=== PATIENT | male | born 1945 | race Caucasian/White ===

== ENCOUNTER → 2023-11-13 11:42 | Outpatient (REF) | payer MEDICARE, BC, SELFPAY | LOC: RAD 11:42 | PROVIDERS: ATTENDING PHYSICIAN Nurse Practitioner | DX: R06.02 Shortness of breath (principal) | CPT/HCPCS: 71046 ==

== ENCOUNTER → 2023-11-29 15:42 | Outpatient (REF) | payer MEDICARE, BC, SELFPAY | LOC: DHCBS HW 15:42 | PROVIDERS: ATTENDING PHYSICIAN Internal Medicine Cardiovascular Disease; FAMILY PHYSICIAN Family Medicine | DX: I50.22 Chronic systolic (congestive) heart failure (principal) | CPT/HCPCS: 93306 ==

== ENCOUNTER 2023-12-04 09:01 | Inpatient (IN) | payer MEDICARE, BC, SELFPAY ==
[2023-12-04] VITALS (25 sets, daily range): BP systolic 70–108; BP diastolic 45–89; BMI 26.6; BMI 27.5
[2023-12-04 07:20] LABS: Hematocrit 40.2 % (39.0-52.0); Hemoglobin 13.6 g/dL (13.0-18.0); Mean Corp Hgb Conc. 33.8 g/dL (33.0-37.0); Mean Corpuscular Hgb 33.3 pg (27.0-31.0); Mean Corpuscular Volume 98.5 fL (80.0-94.0); Mean Platelet Volume 12.6 fL (7.4-10.4); Platelet Count 123 10^3/uL (130-400); Red Blood Cell Count 4.08 10^6/uL (4.70-6.10); Red Cell Dist. Width 12.3 % (11.5-14.5); White Blood Cell Count 4.9 10^3/uL (4.8-10.8)
--- NOTE | 2023-12-04 09:57 | CONSULT.CT ---
Consultation
-
Date/Time Consultation Requested: 12/04
Date/Time Consultation Performed: 12/04
Requesting Provider: Dr. carlson
Performing Provider: Jennifer Alonzo for Dr Jones
Reason for Consultation: evaluate for MVR/CABG
Patient History
Physicians
Family Physician: Maldonado Niño
Outpatient Pulper: Tanesha Issa
Inpatient Pulper: Paris Armenta
History of Present Illness
78 year old male followed by Dr Issa for known coronary disease with prior stenting to RCA in 2005. Over the past few months, patient noticed an inability to perform his usual heavy daily work out and denies chest discomfort, or
lightheadedness/dizziness. Patient admits to recent insomnia and lower extremity edema, but denies PND, cough.
Past Medical History
Past Medical History: Other
CAD s/p RCA stents 2005
Atrial Fibrillation
BPH
Past Surgical History
Past Surgical History: Other
Left hip replacement
Dental History
last dental exam <6 months ago
Family History
Mother: at Age
Father: at Age
Social History
Alcohol: None
Drug: None
Tobacco: Non-Smoker
Personal:
Living: With Spouse
Employment: Retired
Allergies
Allergy/AdvReac Type Severity Reaction Status Date / Time
NKA - No Known Allergies Allergy Unknown Uncoded 12/04/23 07:21
Home Medications
Medication Instructions Recorded Confirmed Type
ascorbic acid (vitamin C) 500 mg 1,000 mg PO DAILY 01/14/11 12/04/23 History
tablet (Vitamin C)
multivitamin with folic acid 400 1 tab PO DAILY ##0 01/14/11 12/04/23 History
mcg tablet (Tab-A-Jacob)
valsartan 320 mg tablet (Diovan) 320 mg PO DAILY 01/14/11 12/04/23 History
aspirin 81 mg tablet,delayed 81 mg PO DAILY ##0 03/16/16 12/04/23 Rx
release
alprazolam 0.25 mg tablet 0.25 mg PO HS 10/20/16 12/04/23 History
apixaban 5 mg tablet (Eliquis) 5 mg PO BID 10/20/16 12/04/23 History
atorvastatin 40 mg tablet 40 mg PO QPM 10/20/16 12/04/23 History
chondroitin sulfate A sodium 400 1,200 mg PO BID 10/20/16 12/04/23 History
mg capsule (Chondroitin Sulfate)
fish oil-dha-epa 1,200 mg-144 1 ea PO BID 10/20/16 12/04/23 History
mg-216 mg capsule
glucosamine HCl 1,500 mg tablet 1,500 mg PO BID 10/20/16 12/04/23 History
psyllium husk (aspartame) 3.4 gram 1 packet PO BID 10/20/16 12/04/23 History
oral powder packet (Metamucil
Fiber Singles)
hydrocodone 5 mg-acetaminophen 325 1 tab PO Q4HPRN PRN pain #10 tabs 08/21/17 12/04/23 Rx
mg tablet
amiodarone 200 mg tablet 200 mg PO BID 12/04/23 12/04/23 History
carvedilol 3.125 mg tablet 3.125 mg PO BID 12/04/23 12/04/23 History
ezetimibe 10 mg tablet 10 mg PO DAILY 12/04/23 12/04/23 History
furosemide 40 mg tablet (Lasix) 40 mg PO DAILY 12/04/23 12/04/23 History
lisinopril 2.5 mg tablet 2.5 mg PO DAILY 12/04/23 12/04/23 History
nitroglycerin 0.4 mg sublingual 0.4 mg sublingual Q5-15M PRN chest 12/04/23 12/04/23 History
tablet (Nitrostat) pain
tamsulosin 0.4 mg capsule 0.4 mg PO HS 12/04/23 12/04/23 History
Review of Systems
-
History Source: Patient
General: Reports Sleep Disturbance (insomnia past 2 weeks)
HEENT: Reports No Symptoms
Respiratory: Reports No Symptoms
Cardiac: Reports No Symptoms
Abdomen/GI: Reports No Symptoms
: Reports Frequency
Musculoskeletal: Reports No Symptoms
Skin: Reports No Symptoms
Neurological: Reports No Symptoms
Vascular: Reports No Symptoms
Physical Exam
Vital Signs
Temp 98 F 12/04/23 07:14
Temp route: Oral 12/04/23 07:14
Pulse 70 12/04/23 07:14
Resp Rate 14 12/04/23 07:14
Blood pressure 108/69 12/04/23 07:14
Blood pressure extremity used: Right upper arm 12/04/23 07:14
Position: Sitting 12/04/23 07:14
SaO2 88 12/04/23 07:14
Oxygen Mode of Delivery Room air 12/04/23 07:14
Can the patient verbally communicate their pain? Yes 12/04/23 07:14
Actual Weight 84.4 kg 12/04/23 07:09
Body Mass Index (BMI) 27.5 12/04/23 07:09
Labs
12/04/23 07:06
Exam
General: Well Developed, Well Nourished and Comfortable
HEENT: Normocephalic, Anicteric, Moist Mucous Membranes and PERRLA
Respiratory: Clear
Cardiac: Irregular Rhythm and Murmur (II/ HSM LSM 5th ICS radiates to axillae)
GI: Soft, Non Tender and Normal Bowel Sounds
Rectal: Deferred by Provider
Skin: Warm and Dry
Neuro: AO x 3, No Motor Deficits and Nonfocal/Grossly Intact
Extremities: Lower Level Edema (+1 B/L ankle edema) and Pulses (+2/4 DP pulses B/L)
Lymph: No Lymphadenopathy
Psych: Calm
Assessment / Plan
-
78 year old male with single vessel coronary disease and severe mitral regurgitation in setting of HFrEF (20-25%)
- Dr Jones reviewed the imaging and discussed complex case with cardiology
- continue diuresis and GDMT
- Plavix load 600mg today and schedule for PCI of LAD
- CLARISSA on Sunday
Data Reviewed
-
EKG: Report Reviewed by me and Discussed with Physician
Cargo Bracer: Report Reviewed by me and Discussed with Physician
Echo: Report Reviewed by me and Discussed with Physician
Radiology: Report Reviewed by me and Discussed with Physician
Labs: Labs Reviewed by me and Discussed with Physician
--- NOTE | 2023-12-04 11:24 | PTCARENOTE ---
patient is Afib on the monitor and has frequent pauses 3.45 seconds, patient is asymptomatic, Ambar Christianson LEARNING AND DEVELOPMENT OFFICER aware.
patient had cardiac cath this am via right groin arterial and venous access, dsg. D/I, distal pulses palpable. patient 8instucted that he needs to lie in bed for 3 hours, verbalizes understanding. will continue to monitor.
[2023-12-04] MEDS: PLAVIX 600 MG PO (11:46)
[2023-12-04] MEDS: LASIX 40 MG IV (11:48)
--- NOTE | 2023-12-04 11:50 | CM ---
priced jardiance with pts perscript plan and his copay is $21.12/month and janae is $ 20.81/month
--- NOTE | 2023-12-04 12:07 | PTCARENOTE ---
INT in left arm unable to flush, D/C'd, new INT placed in right arm # 22P.
--- NOTE | 2023-12-04 12:09 | PTCARENOTE ---
loaded patient with 600mg of plavix as ordered. Dr. Gonzalez in room talking to patient and .
--- NOTE | 2023-12-04 13:41 | W.PN.HOSP.TC ---
Today's Communication/Plan
-
Accepted to medical service
Cardiology continue to follow
Initiate IV diuresis and heparin drip in preparation for eventual PCI
Plavix initiated for eventual PCI
CLARISSA later this week
Monitor renal numbers postcatheterization and on diuretic management
Monitor thrombocytopenia on heparin
Assessment / Plan
Assessment / Plan
78-year-old male who underwent a right and left heart cath today and showed increased filling pressures and a 70 to 80% mid LAD stenosis lesion that will require eventual intervention by PCI but found to be in significant congestive heart failure in
relation to a recently documented reduced of ejection fraction down to 25% from baseline of prior 45% with severe mitral regurgitation also noted. We excepted patient on a medical service and transferred for cardiology plan is for Plavix loading
and scheduled PCI of the LAD in the coming week also a transesophageal echocardiogram. Patient will require significant diuretic management due to significant weight loss and fluid retention on exam.
Past medical history
Prior CAD with RCA stent 2005
Permanent atrial fibrillation
Benign prostatic hypertrophy
Surgical h/o
Prior left hip replacement
Family History
Mother: at Age
Father: at Age
Social History
Alcohol: None
Drug: None
Tobacco: Non-Smoker
Personal:
Living: With Spouse
Employment: Retired
Allergies
Allergy/AdvReac Type Severity Reaction Status Date / Time
NKA - No Known Allergies Allergy � Unknown Uncoded 12/04/23 07:[address]
[facility]
[address] [place] [address]*[place] [address]

�Medication �Instructions �Recorded �Confirmed �Type
ascorbic acid (vitamin C) 500 mg 1,000 mg PO DAILY 01/14/11 12/04/23 History
tablet (Vitamin C) � � � �
multivitamin with folic acid 400 1 tab PO DAILY ##0 01/14/11 12/04/23 History
mcg tablet (Tab-A-Jacob) � � � �
valsartan 320 mg tablet (Diovan) 320 mg PO DAILY 01/14/11 12/04/23 History
aspirin 81 mg tablet,delayed 81 mg PO DAILY ##0 03/16/16 12/04/23 Rx
release � � � �
alprazolam 0.25 mg tablet 0.25 mg PO HS 10/20/16 12/04/23 History
apixaban 5 mg tablet (Eliquis) 5 mg PO BID 10/20/16 12/04/23 History
atorvastatin 40 mg tablet 40 mg PO QPM 10/20/16 12/04/23 History
chondroitin sulfate A sodium 400 1,200 mg PO BID 10/20/16 12/04/23 History
mg capsule (Chondroitin Sulfate) � � � �
fish oil-dha-epa 1,200 mg-144 1 ea PO BID 10/20/16 12/04/23 History
mg-216 mg capsule � � � �
glucosamine HCl 1,500 mg tablet 1,500 mg PO BID 10/20/16 12/04/23 History
psyllium husk (aspartame) 3.4 gram 1 packet PO BID 10/20/16 12/04/23 History
oral powder packet (Metamucil � � � �
Fiber Singles) � � � �
hydrocodone 5 mg-acetaminophen 325 1 tab PO Q4HPRN PRN pain #10 tabs 08/21/17 12/04/23 Rx
mg tablet � � � �
amiodarone 200 mg tablet 200 mg PO BID 12/04/23 12/04/23 History
carvedilol 3.125 mg tablet 3.125 mg PO BID 12/04/23 12/04/23 History
ezetimibe 10 mg tablet 10 mg PO DAILY 12/04/23 12/04/23 History
furosemide 40 mg tablet (Lasix) 40 mg PO DAILY 12/04/23 12/04/23 History
lisinopril 2.5 mg tablet 2.5 mg PO DAILY 12/04/23 12/04/23 History
nitroglycerin 0.4 mg sublingual 0.4 mg sublingual Q5-15M PRN chest 12/04/23 12/04/23 History
tablet (Nitrostat) pain � � �
tamsulosin 0.4 mg capsule 0.4 mg PO HS 12/04/23 12/04/23 History
Assessment and plan
New onset and worsening cardiomyopathy/HFrEF
-Significant weight gain and JEWELL
-EF on most recent 2D echocardiogram reduced from 45% to 25%
-Worsening mitral regurgitation now severe
-Status post left and right heart cath with increased filling pressures
-Found to have mid LAD lesion of 70 to 80% that will require PCI eventually this admission
-Will need diuretic management for fluid overload first/check renal chemistry numbers today
-Given Plavix load for PCI/CLARISSA later this week
-Heparin drip and lieu of prior course of Eliquis on hold
-Cardiology will follow
CAD
-70 to 80% mid LAD lesion
-Prior history of RCA stent in 2005
-Continue statin
-Continue aspirin
-Plavix loading
Permanent atrial fibrillation
-Periods of bradycardia
-On rate control with carvedilol 3.125 mg p.o. twice daily/amiodarone 200 mg twice daily
-Eliquis on hold heparin drip for PCI
-As per cardiology
Essential hypertension
-Continue lisinopril and carvedilol
BPH
-To remain on finasteride and tamsulosin
Thrombocytopenia
-Prior history on a chronic basis
-Unclear etiology
-At prior baseline but will be monitored since on heparin drip
Anxiety /sleep disorder
-Has been using alprazolam 0.25 mg at bedtime-
DVT prophylaxis on heparin drip
Full CODE STATUS
Anticipated Discharge: > 48 hours
Subjective/Interval History
-
Date of Service: December 04, 2023
Asked to see on transfer service from cardiovascular service after left and heart right heart cath earlier today. Patient seen postcatheterization has already received a dosage of IV Lasix with some diuresis present weight is 84.4 kg. Noting
increasing difficulty in sleeping at night also weight gain and exertional dyspnea and daily work duties. More difficulty sleeping necessitating dosing of alprazolam of late as melatonin has not been helping.
Objective Data
-
Labs:
Laboratory Results
12/04/23 12/04/23
07:06 13:16
WBC 4.9
Hgb 13.6
Hct 40.2
Plt Count 123 L
Sodium Pending
Potassium Pending
Chloride Pending
Carbon Dioxide Pending
BUN Pending
Creatinine Pending
Glucose Pending
Calcium Pending
Total Bilirubin Pending
AST Pending
ALT Pending
Alkaline Phosphatase Pending
Vital Signs:
Vital Signs
Temp Pulse Resp BP Pulse Ox
97.8 F 86 16 102/75 99
12/04/23 09:56 12/04/23 12:15 12/04/23 09:56 12/04/23 12:00 12/04/23 09:56
I&O
12/03/23 12/04/23 12/05/23
06:59 06:59 06:59
Intake Total 240 / 240
Output Total 900 / 900
Balance -660 / -660
Review of Systems
-
History Source: Patient and Family
Constitutional: Reports Weight Gain (Almost 20 pounds in the last several months)
Respiratory: Reports No Symptoms
Cardiac: Reports No Symptoms
Abdomen/GI: Reports No Symptoms
Musculoskeletal: Reports Edema (Both lower extremities)
Physical Exam
-
General: Well Developed
HEENT: Normocephalic
Respiratory: Rales and Decreased Breath Sounds
Cardiac: Irregular Rhythm, Murmur (Ejection murmur sternum to axilla) and Bradycardic
GI: Soft, Nontender and Nondistended
Neuro: Awake, Alert, Oriented, AO x 3 and No Motor Deficits
Psych: Calm, Confused and Agitated
Data Reviewed
-
Total Time Spent with Patient (in minutes): 56
Medical Tests (Nuc Med, Echo etc): Report Reviewed by me and Discussed with Physician (Reviewed 2D echocardiogram results and left heart catheter results done today with Dr. Narvaez)
Labs: Labs Reviewed by me (Today's labs still pending chemistries/thrombocytopenia noted 123)
[2023-12-04 14:19] LABS: ALT (SGPT) 60 U/L (0-50); AST (SGOT) 115 U/L (17-59); Albumin 4.1 g/dl (3.5-5.0); Alkaline Phosphatase 49 U/L (38-126); Blood Urea Nitrogen 30 mg/dl (9-20); Calcium 8.9 mg/dl (8.4-10.2); Carbon Dioxide 27 mmol/L (22-30); Chloride 99 mmol/L (98-107); Estimated Creatinine Clearance 60 ml/min; Glucose 123 mg/dl (70-99); Potassium 3.6 mmol/L (3.5-5.1); Sodium 131 mmol/L (135-145); Total Bilirubin 1.1 mg/dl (0.2-1.3); Total Protein 5.9 g/dl (6.3-8.2); eGFR > 60.00
--- NOTE | 2023-12-04 14:49 | PTCARENOTE ---
Dr. Narvaez aware of patients I/O and also patient has frequent pauses and HR in the 30's, 40's.
--- NOTE | 2023-12-04 15:19 | ITS.CL.CATH ---
Lab Assistant - Catheterization
Cardiac Catheterization
Procedure Report:
LEFT AND RIGHT HEART CATHETERIZATION
Date of Procedure: December 04, 2023
Referring: Tanesha Issa
PROCEDURES:
1. Left catheterization, coronary angiogram.
2. Right heart catheterization.
3. Ultrasound-guided access
INDICATION: Mr Clark is a 78-year-old gentleman with past medical history of hypertension, hyperlipidemia, coronary artery disease status post prior multiple RCA stents in 2005, chronic atrial fibrillation on long-term Eliquis, last dose morning
of December 03, 2023, mild memory deficits with 2-month history of progressively worsening dyspnea on exertion found to have a new reduction in LV systolic function of 25 to 30%, reduced from 45 to 50% previously now being referred for a left and
right heart catheterization.
ACCESS:
1. Right common femoral artery, 5 Cambodian sheath, under ultrasound guidance with a micropuncture kit.
2. Right common femoral vein, 6 Cambodian sheath, under ultrasound guidance using a micropuncture kit.
Given significant iliofemoral tortuosity in the right common femoral artery preventing advancement of catheters and wires, the 5 Cambodian by 11 cm sheath was replaced with a 5 Cambodian by 23 cm sheath over a 0.35' Amplatz Super Stiff wire.
HEMODYNAMICS : (mmHg)
RA (m) : 15
RV (s/d,m) : 48/10, 16
PA (s/d, m) : 52/31, 36
PCWP (m) : 31, V waves up to 53 mmHg
PA saturation: 56.1% on room air
AO saturation: 92.4% on room air
RA saturation: 52.9% on room air
Cardiac Output : 3.57 L/min
Cardiac Index : 1.78 L/min/m-2
Systemic vascular resistance: 1612 dsc^(-5)
Pulmonary vascular resistance: 1.40 cowan unit
Heart rate: Average of 80 bpm
AO (s/d) : 107/81, mean of 90 mmHg
CORONARY FINDINGS
DOMINANCE: Right
LEFT MAIN: The left main artery is a large-caliber vessel which gives rise to the left into descending artery and the left circumflex artery. There is eccentric 10 to 20% ostial left main stenosis
LEFT ANTERIOR DESCENDING: The left anterior descending artery is a large-caliber vessel which gives rise to 1 major diagonal branch. There is a stepdown in the mid LAD with diffuse 50% stenosis and a tubular 70 to 80% stenosis in the mid to distal
LAD.
CIRCUMFLEX: The left circumflex artery is a small to medium caliber vessel which gives rise to 1 major obtuse marginal branch. 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
There is mild diffuse atherosclerotic plaque otherwise
RIGHT CORONARY ARTERY: The right coronary is a large-caliber vessel which gives rise to the right posterior descending artery and the right posterolateral branch. Mid RCA stents are patent. There is a 70% stenosis in the midportion of the RPDA.
Otherwise there is mild diffuse atherosclerotic plaque.
SEDATION: 71 minutes of procedural sedation was utilized. An independent manager medical affairs was present to assist with and help manage the patient's level of consciousness and physiologic status.
RADIATION SUMMARY: Fluoro Time (min): 14.6, Dose (mGy): 786.1, DAP (Gy.cm2) : 62.1
Closure Device: Manual pressure was held over both the right common femoral artery and vein with successful hemostasis.
CONCLUSIONS
1. There is a stepdown in the mid LAD with diffuse 50% stenosis and a tubular 70 to 80% stenosis in the mid to distal LAD.
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
3. Mid RCA stents are patent. There is a 70% stenosis in the midportion of the RPDA.
4. Significantly elevated right and left-sided filling pressures with reduced cardiac output. Systemic vascular resistance is mildly elevated.
5. Of note, on the monitor throughout the case patient is in atrial fibrillation with intermittent pauses less than 5 seconds.
RECOMMENDATIONS
1. We will admit with plan for optimization of filling pressures with IV diuresis and optimization of goal-directed medical therapy for underlying cardiomyopathy with staged intervention to mid to distal LAD stenosis.
2. We will try to attempt rhythm control for his underlying atrial fibrillation as tolerated. Monitor closely on telemetry given history of sinus bradycardia.
3. Reassess degree of mitral regurgitation in the future once optimized from a medical standpoint.
Copy to: Tanesha Issa
Niecy Narvaez MD, FAC, [facility]
--- NOTE | 2023-12-04 15:38 | PTCARENOTE ---
Addendum entered by Muna Mclean RN 12/04/23 16:19:
BP after 250cc bolus 97/78 HR 67
Addendum entered by Muna Mclean RN 12/04/23 15:53:
250cc NSS bolus given as ordered,
Addendum entered by Muna Mclean RN 12/04/23 15:42:
pacer pads applied
Original Note:
BP right arm 81/67, left rm 79/66, placed patient back to bed, asymptomatic, monitor showing afib with pauses. Rosangela WHITAKER and Dr. Armenta in room.
--- NOTE | 2023-12-04 15:52 | W.PN.UPDATE ---
Addendum entered and electronically signed by Niecy Narvaez MD 12/04/23 17:25:
I saw and examined the patient.
The Certified Physician Assistant's note was reviewed and I agree with the note.
Comment: Called to patient's bedside urgently given hypotension in the setting of intermittent pauses with underlying heart rhythm being atrial fibrillation. Most pauses are 2 to 3 seconds with the longest pause happening once at 4.5 seconds.
Patient is asymptomatic. His ins and outs are notable for an input of 240 cc and output after IV Lasix of 2400 cc. Blood pressure noted to be 83/68. My suspicion is that he responded to Lasix quite aggressively with the fluid coming off a bit too
quickly. We will trial giving back to 50 cc of fluid and reassess blood pressure. He continues to remain asymptomatic for now. Groin access site from catheter earlier today without evidence of hematoma or bruit. I discussed with EP colleague,
Dr. Hany Poon, we agreed to hold off on carvedilol as well as amiodarone for now. Given hypotension for now we will also hold off on further Lasix as well as valsartan. No indications currently for a urgent temporary transvenous pacemaker or
permanent device however we briefly discussed with the patient that depending on how he does that is something we may need to consider down the road. Tentative plan if he remains stable overnight and labs are stable, importantly his blood counts
and renal function, for mid to distal LAD PCI tomorrow.
Discussed with nursing at bedside as well as with patient along with his , son and [id number]. All of their questions were answered in detail.
Niecy Narvaez MD, [facility], [facility]
Addendum: We checked on the patient post IV fluids with blood pressure improved to 95/71. Patient continues to feel well without any complaints.
Original Note:
Update Note
Progress Note Update
Called to see patient for pauses up to 4.5 seconds on tele and at other times he is having short runs of rapid Afib. Patient said that he was asymptomatic. Patient then noted to be hypotensive at 83/68 and he reported feeling lightheaded. Patient
was returned from bed to chair. Will give NSS bolus 250 ml x1 now. Hold additional doses of Lasix IV. Stop amiodarone and Coreg for now. Pads placed. Start Heparin gtt tonight. Eliquis 5 mg BID as an outpatient has been on hold for a planned cath.
Talked with patient's and other family in the room about tachy-shayy changes on tele and that will review the case with EP.
[2023-12-04] MEDS: NSS 500 IV (15:57)
[2023-12-04] MEDS: LIPITOR 40 MG PO (17:05)
[2023-12-04] MEDS: HEPARIN 25000 UNITS/250 ML IV (17:55)
--- NOTE | 2023-12-04 18:11 | PTCARENOTE ---
PTT obtained and sent to lab, PLT count 123, notified Dr. Shen, aware. started IV heparin drip at 1000units/hr as ordered. next PTT will be at 2355.
[2023-12-04 18:21] LABS: APTT 31.9 Sec (23.4-35.0)
[2023-12-04] MEDS: NSS 250 IV (18:47)
--- NOTE | 2023-12-04 18:47 | PTCARENOTE ---
Dr. Shen notified that patient is having frequent pauses again and BP 82/65, ordered 250cc blous of NSS. also TT Dr. Narvaez.
--- NOTE | 2023-12-04 19:05 | PTCARENOTE ---
Dr. Armenta called to unit, discussed patient, passed on to night RN to notify Dr. Narvaez in ah hour and a half of patients BP and if patient becomes symptomatic.
--- NOTE | 2023-12-04 22:20 | PTCARENOTE ---
Pt rec'd at change of shift in bed with family at bedside. Afib with freq pauses < 3 sec. noted with occ pvc's. b/p stable 80's systolic. pt denies feeling lightheaded or having cp. Dr Narvaez updated at 2100 of pt's telemetry rhythm and VS. Right
femoral cath site with DDI. No active bleeding or hematoma noted, good pedal pulse. heparin continued at 1000 units /hr next ptt at midnight. Pt continues to void well in urinal. call delgado within reach.
[2023-12-04] MEDS: XANAX 0.25 MG PO (22:43)
--- NOTE | 2023-12-04 22:52 | PTCARENOTE ---
b/p improved. Pt reports however feeling anxious. Xanax given. Pt stated ' I don't think I'll be able to sleep at all tonight'. Pt offered eye mask,ear plugs and relaxing music but pt deferred.
[2023-12-05] VITALS (35 sets, daily range): BP systolic 67–114; BP diastolic 46–91
--- NOTE | 2023-12-05 00:13 | PTCARENOTE ---
RN in to draw ptt and lactate level. Pt reported at that time that he has chest pressure. started 1 hr ago. Pt stated he thought it was just his anxiety. o2 at 2 lit n/c placed. B/p 108/82. ecg completed. PA Ed made aware . Morphine 1 mg ordered. no
ntg due to previous low b/p.
[2023-12-05 00:19] LABS: APTT 75.8 Sec (23.4-35.0)
[2023-12-05] MEDS: MORPHINE SULFATE 1 MG IV (00:19)
[2023-12-05 00:24] LABS: Lactic Acid 0.8 mmol/L (0.7-2.0)
--- NOTE | 2023-12-05 00:27 | PTCARENOTE ---
Morphine 1 mg given IV. call delgado within reach. pt's ht rate 80-90's b/p 102/83
--- NOTE | 2023-12-05 01:10 | PTCARENOTE ---
Pt's chest pressure down to 3 out of 10. states he's getting sleepy and feels less anxious. O2 continued at 2 lit n/c b/p stable 100/78. afib with minimal pauses noted. call delgado within reach.
--- NOTE | 2023-12-05 04:24 | DOWNTIME ---
There was a [employer] Downtime on 12/05/2023 from 0111 to 12/05/2023 at 0405. Downtime documentation of patient's care, including medication administrations, has been reconciled in the electronic record per guidelines. Refer to the
patient's paper chart under the miscellaneous tab to see printed paper medication records and downtime forms.
[2023-12-05 06:15] LABS: Hematocrit 38.9 % (39.0-52.0); Hemoglobin 13.3 g/dL (13.0-18.0); Mean Corp Hgb Conc. 34.2 g/dL (33.0-37.0); Mean Corpuscular Hgb 33.4 pg (27.0-31.0); Mean Corpuscular Volume 97.7 fL (80.0-94.0); Mean Platelet Volume 11.7 fL (7.4-10.4); Platelet Count 110 10^3/uL (130-400); Red Blood Cell Count 3.98 10^6/uL (4.70-6.10); Red Cell Dist. Width 12.2 % (11.5-14.5); White Blood Cell Count 5.6 10^3/uL (4.8-10.8)
[2023-12-05 06:32] LABS: APTT 103.2 Sec (23.4-35.0)
[2023-12-05 06:46] LABS: Blood Urea Nitrogen 27 mg/dl (9-20); Calcium 8.8 mg/dl (8.4-10.2); Carbon Dioxide 26 mmol/L (22-30); Chloride 102 mmol/L (98-107); Estimated Creatinine Clearance 67 ml/min; Glucose 80 mg/dl (70-99); HDL Cholesterol 46 mg/dl; LDL Cholesterol, Calculated 37 mg/dl; Potassium 3.5 mmol/L (3.5-5.1); Sodium 132 mmol/L (135-145); Total Cholesterol 93 mg/dl (50-199); Triglyceride 52 mg/dl (10-149); Very Low Density Lipoprotein 10 mg/dl (0-30); eGFR > 60.00
--- NOTE | 2023-12-05 06:46 | PTCARENOTE ---
Dr Narvaez notified of pts chest discomfort during the night and vs. Order obtained to keep pt npo until seen by cardiology. Pt aware.
--- NOTE | 2023-12-05 07:35 | W.PN.CARDCBS ---
Addendum entered and electronically signed by David Issa MD 12/05/23 12:42:
Patient seen, interviewed and examined by me.
Well-appearing this AM, no acute distress
Regular rate and rhythm with normal S1 and S2, no S3 no S4. There is a grade 1/6 apical holosystolic murmur and no rubs. PMI is normally placed.
Lungs are clear to auscultation bilaterally without wheezes rales or rhonchi.
Abdomen soft nontender nondistended with normoactive bowel sounds
Extremities show trace pretibial edema bilaterally no clubbing or cyanosis.
Neurologic exam is grossly nonfocal.
Agree with advanced practice professionals assessment and plan as noted below.
Additionally, I met with the patient today to discuss overall cardiovascular recommendations/planning.
Recommendation is to proceed with planned LAD intervention today
Given his significant bradycardia arrhythmia necessitating discontinuation of antiarrhythmic drug as well as discontinuation of carvedilol, pacing indication is present. Additionally given his severe left ventricular systolic dysfunction ICD
indication is present. Given his known bradycardia arrhythmia and periods of heart block it is expected that he will require ventricular pacing greater than 40% of the time and therefore cardiac resynchronization pacing is expected to provide
clinical benefit.
Expect that we proceed towards cardiac resynchronization defibrillator implantation tomorrow.
Of note he will be on dual antiplatelet therapy post LAD intervention as well as heparin
Heparin will be discontinued tomorrow morning in anticipation of RAIL DIRECTOR defibrillator implantation tomorrow
After RAIL DIRECTOR implantation patient will continue to require dual antiplatelet therapy and decision can then be made regarding when to resume DOAC
Given his left ventricular systolic dysfunction and clinical heart failure he would benefit from rhythm control.
Once RAIL DIRECTOR defibrillator is implanted amiodarone can be resumed and once anticoagulation has been resumed plans can be made for CLARISSA/cardioversion
I have discussed all this with the patient in detail and answered all of his questions. He does agree with the plan as outlined above.
Original Note:
Today's Communication / Plan
-
Holding off on additional IV diuresis
Coreg and amiodarone were held/stopped yesterday and patient is agreeable to RAIL DIRECTOR-D in AM and afterwards will resume those meds
Eventual CLARISSA/CV
LAD PCI today
Impression / Plan
-
PCP: Dr. Niño
Primary Agency Legal Counsel: Dr Tanesha Issa
Impression:
Acute HFrEF
CM EF 25-30% by echo 11/29/23
Paroxysmal Afib
Sinus pauses and intermittent bradycardia
Hypotension
CAD
prior inferior wall NC s/p PCI and PANDA to RCA in 2002
s/p ostial PDA and RCA PCI and PANDA in 2005
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
Severe MR by echo 11/29/23
Hyperlipidemia
HTN
Hyponatremia
Elevated LFTs
irritable bowel disease
Echo 11/29/23: EF 25-30%, global hypokinesis, normal RV size and mildly reduced RV systolic function, severe MR, mild to mod aortic regurgitation, mild TR with PAP 41 mmHg, trivial pericardial effusion
Plan:
-Patient was seen in the office 10/23/23 and then called the office 11/12/23 to report SOB and ongoing LE edema despite stopping amlodipine at his last visit. Echo was ordered and as noted on echo 11/29/23 his EF was down to 25-30% and was previously
45%. Patient had cath 12/04/23 with results as noted above and new LAD lesion.
-Patient's PCWP was 31 on RHC. Patient was given an unknown dose of Lasix in the labor mediator 12/04/23 and had increased urine output resulting in hypotension. Patient was given NSS 500 ml bolus and seemed to improve.
-Ongoing issues throughout the night of Afib and then pauses. Outpatient doses of amiodarone and Coreg are on hold.
-Plan now is for LAD PCI 12/05/23 and then RAIL DIRECTOR-D 12/06/23 which will allow us to resume amiodarone and Coreg.
-Will also consider an eventual CLARISSA/CV as an outpatient.
HPI: Mr Clark is a 78-year-old gentleman with past medical history of hypertension, hyperlipidemia, coronary artery disease status post prior multiple RCA stents in 2005, chronic atrial fibrillation on long-term Eliquis, last dose morning of
December 03, 2023, mild memory deficits with 2-month history of progressively worsening dyspnea on exertion found to have a new reduction in LV systolic function of 25 to 30%, reduced from 45 to 50% previously now being referred for a left and right
heart catheterization.
Progress Note - Agency Legal Counsel
Subjective
Date of Service: December 05, 2023
He says that he felt better overnight
Objective
Labs:
12/05/23 06:03
12/05/23 06:03
Labs
Hgb 13.3 g/dL (13.0-18.0) 12/05/23 06:03
Hct 38.9 % (39.0-52.0) L 12/05/23 06:03
Plt Count 110 10^3/uL (130-400) L 12/05/23 06:03
APTT 103.2 Sec (23.4-35.0) H 12/05/23 06:03
Sodium 132 mmol/L (135-145) L 12/05/23 06:03
Potassium 3.5 mmol/L (3.5-5.1) 12/05/23 06:03
BUN 27 mg/dl (9-20) H 12/05/23 06:03
Creatinine 0.9 mg/dL (0.7-1.3) 12/05/23 06:03
Glucose 80 mg/dl (70-99) 12/05/23 06:03
Vital Signs and I&O:
Vital Signs
Temp Pulse Resp BP Pulse Ox
97.9 F 103 18 105/89 97
12/05/23 07:15 12/05/23 05:51 12/05/23 07:15 12/05/23 05:55 12/05/23 07:15
Vital Signs
Temp Pulse Resp BP Pulse Ox
97.9 F 103 18 105/89 97
12/05/23 07:15 12/05/23 05:51 12/05/23 07:15 12/05/23 05:55 12/05/23 07:15
Intake & Output
12/03/23 12/04/23 12/05/23 12/06/23
06:59 06:59 06:59 06:59
Intake Total 490 / 490
Output Total 3300 / 3300
Balance -2810 / -2810
Physical Exam
Physical Exam
GEN: NAD, AAOx3
HEENT: EOMI
LUNGS: CTA B/L
CV: Irreg irreg
ABD: soft, BS+
EXT: No edema B/L LE
NEURO: Gross non-focal
SKIN: No rash
--- NOTE | 2023-12-05 07:41 | W.PN.HOSP.TC ---
Today's Communication/Plan
-
Will hold off on amiodarone and carvedilol scheduled for today due to soft BP
Would hold any further attempts at diuresis at this point
Continued pauses in the setting of his A-fib
defer timing of PCI for his LAD lesion to cardiology continue heparin drip/pacer?/Attempted CLARISSA cardioversion?
Assessment / Plan
Assessment / Plan
78-year-old male who underwent a right and left heart cath today and showed increased filling pressures and a 70 to 80% mid LAD stenosis lesion that will require eventual intervention by PCI but found to be in significant congestive heart failure in
relation to a recently documented reduced of ejection fraction down to 25% from baseline of prior 45% with severe mitral regurgitation also noted. We excepted patient on a medical service and transferred for cardiology plan is for Plavix loading
and scheduled PCI of the LAD in the coming week also a transesophageal echocardiogram. Patient will require significant diuretic management due to significant weight loss and fluid retention on exam.
Past medical history
Prior CAD with RCA stent 2005
Permanent atrial fibrillation
Benign prostatic hypertrophy
Surgical h/o
Prior left hip replacement
Family History
Mother: at Age
Father: at Age
Social History
Alcohol: None
Drug: None
Tobacco: Non-Smoker
Personal:
Living: With Spouse
Employment: Retired
Allergies
Allergy/AdvReac Type Severity Reaction Status Date / Time
NKA - No Known Allergies Allergy � Unknown Uncoded 12/04/23 07:21
[facility]
[address] [place] [address]*[place] [address]

�Medication �Instructions �Recorded �Confirmed �Type
ascorbic acid (vitamin C) 500 mg 1,000 mg PO DAILY 01/14/11 12/04/23 History
tablet (Vitamin C) � � � �
multivitamin with folic acid 400 1 tab PO DAILY ##0 01/14/11 12/04/23 History
mcg tablet (Tab-A-Jacob) � � � �
valsartan 320 mg tablet (Diovan) 320 mg PO DAILY 01/14/11 12/04/23 History
aspirin 81 mg tablet,delayed 81 mg PO DAILY ##0 03/16/16 12/04/23 Rx
release � � � �
alprazolam 0.25 mg tablet 0.25 mg PO HS 10/20/16 12/04/23 History
apixaban 5 mg tablet (Eliquis) 5 mg PO BID 10/20/16 12/04/23 History
atorvastatin 40 mg tablet 40 mg PO QPM 10/20/16 12/04/23 History
chondroitin sulfate A sodium 400 1,200 mg PO BID 10/20/16 12/04/23 History
mg capsule (Chondroitin Sulfate) � � � �
fish oil-dha-epa 1,200 mg-144 1 ea PO BID 10/20/16 12/04/23 History
mg-216 mg capsule � � � �
glucosamine HCl 1,500 mg tablet 1,500 mg PO BID 10/20/16 12/04/23 History
psyllium husk (aspartame) 3.4 gram 1 packet PO BID 10/20/16 12/04/23 History
oral powder packet (Metamucil � � � �
Fiber Singles) � � � �
hydrocodone 5 mg-acetaminophen 325 1 tab PO Q4HPRN PRN pain #10 tabs 08/21/17 12/04/23 Rx
mg tablet � � � �
amiodarone 200 mg tablet 200 mg PO BID 12/04/23 12/04/23 History
carvedilol 3.125 mg tablet 3.125 mg PO BID 12/04/23 12/04/23 History
ezetimibe 10 mg tablet 10 mg PO DAILY 12/04/23 12/04/23 History
furosemide 40 mg tablet (Lasix) 40 mg PO DAILY 12/04/23 12/04/23 History
lisinopril 2.5 mg tablet 2.5 mg PO DAILY 12/04/23 12/04/23 History
nitroglycerin 0.4 mg sublingual 0.4 mg sublingual Q5-15M PRN chest 12/04/23 12/04/23 History
tablet (Nitrostat) pain � � �
tamsulosin 0.4 mg capsule 0.4 mg PO HS 12/04/23 12/04/23 History
Assessment and plan
New onset and worsening cardiomyopathy/HFrEF
-Significant weight gain and JEWELL
-EF on most recent 2D echocardiogram reduced from 45% to 25%
-Worsening mitral regurgitation now severe
-Status post left and right heart cath with increased filling pressures
-Found to have mid LAD lesion of 70 to 80% that will require PCI eventually this admission
-Will need diuretic management for fluid overload first/check renal chemistry numbers today
-Given Plavix load for PCI/CLARISSA later this week
-Heparin drip and lieu of prior course of Eliquis on hold
-Cardiology will follow
CAD
-70 to 80% mid LAD lesion/will need imminent PCI intervention
-Prior history of RCA stent in 2005
-Continue statin
-Continue aspirin
-Renal numbers stable post cath
-Plavix loading
Permanent atrial fibrillation
-Periods of bradycardia/pauses as long as 4-1/2 seconds
-On rate control with carvedilol 3.125 mg p.o. twice daily/amiodarone 200 mg twice daily/being held
-Temporary pacer pads applied
-Hypotension after attempted diuresis yesterday
-Eliquis on hold/ heparin drip for PCI
-As per cardiology
Essential hypertension
-Continue lisinopril and carvedilol
BPH
-To remain on finasteride and tamsulosin
Thrombocytopenia
-Prior history on a chronic basis
-Unclear etiology
-At prior baseline but will be monitored since on heparin drip
Anxiety /sleep disorder
-Has been using alprazolam 0.25 mg at bedtime-
DVT prophylaxis on heparin drip
Full CODE STATUS
Anticipated Discharge: Within 24 hours
Subjective/Interval History
-
Date of Service: December 05, 2023
Patient again had some chest pressure overnight some relief with 1 mg of morphine borderline hypotension throughout the night required 2 fluid boluses yesterday evening after brisk diuresis in the afternoon.
Objective Data
-
Labs:
Laboratory Results
12/04/23 12/05/23
23:57 06:03
WBC 5.6
Hgb 13.3
Hct 38.9 L
Plt Count 110 L
APTT 75.8 H 103.2 H
Sodium 132 L
Potassium 3.5
Chloride 102
Carbon Dioxide 26
BUN 27 H
Creatinine 0.9
Glucose 80
Calcium 8.8
Vital Signs:
Vital Signs
Temp Pulse Resp BP Pulse Ox
97.9 F 103 18 105/89 97
12/05/23 07:15 12/05/23 05:51 12/05/23 07:15 12/05/23 05:55 12/05/23 07:15
I&O
12/04/23 12/05/23 12/06/23
06:59 06:59 06:59
Intake Total 490 / 490
Output Total 3300 / 3300
Balance -2810 / -2810
Review of Systems
-
History Source: Patient
Constitutional: Reports Weight Gain
EENT: Reports No Symptoms Reported
Respiratory: Reports No Symptoms
Cardiac: Reports Chest Pain (Mild chest pressure throughout night)
Physical Exam
-
General: Well Developed
HEENT: Normocephalic
Respiratory: Clear to Auscultation and Decreased Breath Sounds
Cardiac: Irregular Rhythm (Underlying atrial fibrillation with pauses) and Bradycardic
Musculoskeletal: Edema, Right Lower Extrem and Edema, Left Lower Extrem
Skin: IV Access / Catheter Site
Neuro: Awake, Alert and Oriented
Psych: Calm and Confused
Data Reviewed
-
Total Time Spent with Patient (in minutes): 56
Labs: Labs Reviewed by me
--- NOTE | 2023-12-05 09:31 | CM ---
spoke to pt in room, he is prev indep, lives with his in an apt with no steps to enter, he denies any dc planning needs or dme's. plan is for dc to home when medically stable.
[2023-12-05] MEDS: ZETIA 10 MG PO (09:40)
[2023-12-05] MEDS: PLAVIX 75 MG PO (09:40)
[2023-12-05] MEDS: ASPIR LOW (ENTERIC COATED) 81 MG PO (09:41)
[2023-12-05 14:43] LABS: ACT-LR - POC 287 Seconds (116-155)
[2023-12-05 14:53] LABS: ACT-LR - POC 310 Seconds (116-155)
[2023-12-05 15:31] LABS: ACT-LR - POC 268 Seconds (116-155)
[2023-12-05] MEDS: NSS 1000 IV (16:03)
--- NOTE | 2023-12-05 16:07 | PTCARENOTE ---
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 monitor on Afib with frequent pauses, BP 100/60, patient has no complaints. instructions given to patient
and on post cath orders, verbalizes understanding. IV NSS @ 127cc/hr for 5 hours as ordered.
[2023-12-05] MEDS: LIPITOR 40 MG PO (17:30)
--- NOTE | 2023-12-05 17:30 | ITS.CL.CATH ---
Artillery Officer - Catheterization
Cardiac Catheterization
Procedure Report:
LEFT HEART CATHETERIZATION
�
Date of Procedure: December 04, 2023
�
Referring: Tanesha Issa
�
PROCEDURES:
1.� Selective left coronary angiogram.
2. Successful percutaneous coronary intervention of mid to distal 70% hazy stenosis with a 2.5 x 15 mm Xience anna point drug-eluting stent, successfully postdilated with a 2.75 x 12 mm NC balloon at 18 soniya with an excellent angiographic result.
3. Ultrasound-guided access.
�
INDICATION: Mr Clark is a 78-year-old gentleman with past medical history of hypertension, hyperlipidemia, coronary artery disease status post prior multiple RCA stents in 2005, chronic atrial fibrillation on long-term Eliquis, last dose morning
of December 03, 2023, mild memory deficits with 2-month history of progressively worsening dyspnea on exertion found to have a new reduction in LV systolic function of 25 to 30%, reduced from 45 to 50% previously. Patient underwent a diagnostic
heart catheterization yesterday and is now coming back for a planned mid to distal LAD PCI. He was loaded with Plavix 600 mg yesterday.
�
ACCESS:
1.� Left radial artery, 6 [place]i sheath, under ultrasound guidance.
�
HEMODYNAMICS : (mmHg)
�
AO (s/d) : 103/74, mean of 87 mmHg
�
CORONARY FINDINGS
DOMINANCE: Right
LEFT MAIN: The left main artery is a large-caliber vessel which gives rise to the left into descending artery and the left circumflex artery.� There is eccentric 10 to 20% ostial left main stenosis
LEFT ANTERIOR DESCENDING: The left anterior descending artery is a large-caliber vessel which gives rise to 1 major diagonal branch.� There is a stepdown in the mid LAD with diffuse 50% stenosis at the level of the diagonal branch and a tubular 70
to 80% stenosis in the mid to distal LAD.
CIRCUMFLEX: The left circumflex artery is a small to medium caliber vessel which gives rise to 1 major obtuse marginal branch.� The left circumflex is known to be chronically totally occluded in the midportion just distal to the major OM branch.�
There is mild diffuse atherosclerotic plaque otherwise
RIGHT CORONARY ARTERY: The right coronary artery was not selectively shot on this angiogram.
�
CORONARY INTERVENTION: The left coronary artery was selectively engaged using a EBU 3.5 guide catheter. We initially failed with a EBU 3.75 guide catheter. Additional heparin was given to maintain a therapeutic ACT throughout the case. A 190
cm.014' BMW coronary wire was advanced into the distal LAD. We initially attempted to pre-dilate the mid to distal LAD lesion however had a lot of difficulty delivering the balloon. At this point we brought in a 6 [place]i guide liner through which
we were able to deliver a 2.5 x 12 mm semi-compliant balloon at 12 soniya with good expansion. The lesion was then stented using a 2.5 x 15 mm Xience anna point drug-eluting stent which was delivered with the assistance of a guide liner. The stent was
postdilated using a 2.75 x 12 mm NC balloon at 18 soniya with an excellent angiographic result. Patient tolerated the procedure with no acute complications.
SEDATION: 94 minutes of procedural sedation was utilized.� An independent medical referral coordinator was present to assist with and help manage the patient's level of consciousness and physiologic status.
RADIATION SUMMARY:� Fluoro Time (min): 21.0, Dose (mGy): 826.6, DAP (Gy.cm2) : 68.7
�
Closure Device: Vascular band over left radial artery, 10 cc of air.
�
CONCLUSIONS
1. Successful percutaneous coronary intervention of mid to distal 70% hazy stenosis with a 2.5 x 15 mm Xience anna point drug-eluting stent, successfully postdilated with a 2.75 x 12 mm NC balloon at 18 soniya with an excellent angiographic result.
�
RECOMMENDATIONS
1.� Dual antiplatelet therapy with aspirin and Plavix for 1 week in addition to either heparin or Eliquis, then Eliquis and Plavix after 7 days. High intensity statin. Beta-debbie post permanent pacemaker placement tomorrow.
2. Aggressive management of cardiovascular risk factors.
3. Optimization of goal-directed medical therapy for underlying mixed cardiomyopathy.
4. Referral for outpatient cardiac rehab.
�
Copy to: Tanesha Issa
Niecy Narvaez MD, FACC, [facility]
--- NOTE | 2023-12-05 19:25 | PTCARENOTE ---
patient BP 77/63, HR 50's, IV NSS @ 125cc/hr, TT Dr. Armenta aware patient is asymptomatic. Dr. Armenta wants NSS to infuse and reassessed and notify her. report given to oncoming RN. patient was educated to stay in bed and verbalizes understanding.
--- NOTE | 2023-12-05 19:52 | PTCARENOTE ---
Assumed care. Patient with low BP 70-80/50's asymptomatic, AFIB in the 50-70 with pauses. Bedrest overnight. Urinal at bedside
--- NOTE | 2023-12-05 21:24 | PTCARENOTE ---
IV fluids completed. Patient did void 275 in urinal. Bedrest overnight, patient informed. NPO past midnight for PPM in am. A-FIB HR in the 50's with frequent pauses longest 4.45 sec at 2039. BP 84/66, patient remains asymptomatic and Dr. Burger
updated. Pacer pads on chest and extra set at beside.
[2023-12-05] MEDS: HEPARIN 25000 UNITS/250 ML IV (22:04)
[2023-12-05] MEDS: XANAX PO (22:08)
--- NOTE | 2023-12-05 23:25 | PTCARENOTE ---
Patient asleep, A-FIB, HR 70-90's with pauses, BP 105/83. Heparin infusing per MAR.
[2023-12-06] VITALS (12 sets, daily range): BP systolic 80–112; BP diastolic 57–88; BMI 26.8
--- NOTE | 2023-12-06 02:25 | PTCARENOTE ---
Patient awake watching. A-FIB with frequent PVC's and 6 beat run of VT. Placed on oxygen at 2 liters NC. BP 106/86, HR 91, POX 97% on room air
--- NOTE | 2023-12-06 05:19 | PTCARENOTE ---
CHG wipes, chest clipped, gown and sheets changed. EKG completed, VSS, NPO since midnight, call delgado in reach
[2023-12-06 05:32] LABS: Hematocrit 41.4 % (39.0-52.0); Hemoglobin 14.1 g/dL (13.0-18.0); Mean Corp Hgb Conc. 34.1 g/dL (33.0-37.0); Mean Corpuscular Hgb 33.6 pg (27.0-31.0); Mean Corpuscular Volume 98.6 fL (80.0-94.0); Platelet Count 116 10^3/uL (130-400); Red Cell Dist. Width 12.4 % (11.5-14.5); White Blood Cell Count 5.9 10^3/uL (4.8-10.8)
[2023-12-06 05:39] LABS: APTT 69.4 Sec (23.4-35.0)
--- NOTE | 2023-12-06 06:02 | PTCARENOTE ---
Heparin gtt stopped per orders
[2023-12-06 06:03] LABS: Blood Urea Nitrogen 25 mg/dl (9-20); Calcium 8.6 mg/dl (8.4-10.2); Carbon Dioxide 24 mmol/L (22-30); Chloride 105 mmol/L (98-107); Estimated Creatinine Clearance 86 ml/min; Glucose 78 mg/dl (70-99); Potassium 3.9 mmol/L (3.5-5.1); Sodium 132 mmol/L (135-145); eGFR > 60.00
--- NOTE | 2023-12-06 07:21 | W.PN.HOSP.TC ---
Today's Communication/Plan
-
for Bi V /pacer today
Continue to monitor renal status post cath x 2
Resumption of ARB and beta-blockade as per cardiology post pacer
Plavix/aspirin for 7 days/Resumption of Eliquis post pacer plus Plavix thereafter
Assessment / Plan
Assessment / Plan
78-year-old male who underwent a right and left heart cath today and showed increased filling pressures and a 70 to 80% mid LAD stenosis lesion that will require eventual intervention by PCI but found to be in significant congestive heart failure in
relation to a recently documented reduced of ejection fraction down to 25% from baseline of prior 45% with severe mitral regurgitation also noted. We excepted patient on a medical service and transferred for cardiology plan is for Plavix loading
and scheduled PCI of the LAD in the coming week also a transesophageal echocardiogram.
Past medical history
Prior CAD with RCA stent 2005
Permanent atrial fibrillation
Benign prostatic hypertrophy
Surgical h/o
Prior left hip replacement
Family History
Mother: at Age
Father: at Age
Social History
Alcohol: None
Drug: None
Tobacco: Non-Smoker
Personal:
Living: With Spouse
Employment: Retired
Allergies
Allergy/AdvReac Type Severity Reaction Status Date / Time
NKA - No Known Allergies Allergy � Unknown Uncoded 12/04/23 07:21
[facility]
[address] [place] [address]*[place] [address]

�Medication �Instructions �Recorded �Confirmed �Type
ascorbic acid (vitamin C) 500 mg 1,000 mg PO DAILY 01/14/11 12/04/23 History
tablet (Vitamin C) � � � �
multivitamin with folic acid 400 1 tab PO DAILY ##0 01/14/11 12/04/23 History
mcg tablet (Tab-A-Jacob) � � � �
valsartan 320 mg tablet (Diovan) 320 mg PO DAILY 01/14/11 12/04/23 History
aspirin 81 mg tablet,delayed 81 mg PO DAILY ##0 03/16/16 12/04/23 Rx
release � � � �
alprazolam 0.25 mg tablet 0.25 mg PO HS 10/20/16 12/04/23 History
apixaban 5 mg tablet (Eliquis) 5 mg PO BID 10/20/16 12/04/23 History
atorvastatin 40 mg tablet 40 mg PO QPM 10/20/16 12/04/23 History
chondroitin sulfate A sodium 400 1,200 mg PO BID 10/20/16 12/04/23 History
mg capsule (Chondroitin Sulfate) � � � �
fish oil-dha-epa 1,200 mg-144 1 ea PO BID 10/20/16 12/04/23 History
mg-216 mg capsule � � � �
glucosamine HCl 1,500 mg tablet 1,500 mg PO BID 10/20/16 12/04/23 History
psyllium husk (aspartame) 3.4 gram 1 packet PO BID 10/20/16 12/04/23 History
oral powder packet (Metamucil � � � �
Fiber Singles) � � � �
hydrocodone 5 mg-acetaminophen 325 1 tab PO Q4HPRN PRN pain #10 tabs 08/21/17 12/04/23 Rx
mg tablet � � � �
amiodarone 200 mg tablet 200 mg PO BID 12/04/23 12/04/23 History
carvedilol 3.125 mg tablet 3.125 mg PO BID 12/04/23 12/04/23 History
ezetimibe 10 mg tablet 10 mg PO DAILY 12/04/23 12/04/23 History
furosemide 40 mg tablet (Lasix) 40 mg PO DAILY 12/04/23 12/04/23 History
lisinopril 2.5 mg tablet 2.5 mg PO DAILY 12/04/23 12/04/23 History
nitroglycerin 0.4 mg sublingual 0.4 mg sublingual Q5-15M PRN chest 12/04/23 12/04/23 History
tablet (Nitrostat) pain � � �
tamsulosin 0.4 mg capsule 0.4 mg PO HS 12/04/23 12/04/23 History
Assessment and plan
New onset and worsening cardiomyopathy/HFrEF
-Significant weight gain and JEWELL
-EF on most recent 2D echocardiogram reduced from 45% to 25%
-Worsening mitral regurgitation now severe
-Status post left and right heart cath with increased filling pressures
-Found to have mid LAD lesion of 70 to 80% that will require PCI eventually this admission
-Will need diuretic management for fluid overload first/check renal chemistry numbers today
-Given Plavix load for PCI/CLARISSA later this week
-Heparin drip and lieu of prior course of Eliquis on hold
-Cardiology will follow
CAD
-70 to 80% mid LAD lesion/now status post PCI intervention PANDA to mid LAD
-Prior history of RCA stent in 2005
-Continue statin
-Continue aspirin
-Renal numbers stable post cath
-Plavix
Permanent atrial fibrillation
-Periods of bradycardia/pauses as long as 4-1/2 seconds
-On rate control with carvedilol 3.125 mg p.o. twice daily/amiodarone 200 mg twice daily/being held
-Temporary pacer pads applied/BiV /pace r later today
-Eliquis on hold/ heparin drip for PCI
-As per cardiology
Essential hypertension
-Continue lisinopril and carvedilol/held till BP stabilized
BPH
-To remain on finasteride and tamsulosin
Thrombocytopenia
-Prior history on a chronic basis
-Unclear etiology
-At prior baseline but will be monitored since on heparin drip
Anxiety /sleep disorder
-Has been using alprazolam 0.25 mg at bedtime-
DVT prophylaxis on heparin drip
Full CODE STATUS
Anticipated Discharge: 24 - 48 hours
Subjective/Interval History
-
Date of Service: December 06, 2023
No complaints overnight no chest pain no shortness of breath
Objective Data
-
Labs:
Laboratory Results
12/06/23
04:56
WBC 5.9
Hgb 14.1
Hct 41.4
Plt Count 116 L
APTT 69.4 H
Sodium 132 L
Potassium 3.9
Chloride 105
Carbon Dioxide 24
BUN 25 H
Creatinine 0.7
Glucose 78
Calcium 8.6
Vital Signs:
Vital Signs
Temp Pulse Resp BP Pulse Ox
98.2 F 93 16 111/85 96
12/06/23 04:45 12/06/23 05:15 12/06/23 04:45 12/06/23 04:45 12/06/23 04:45
I&O
12/05/23 12/06/23 12/07/23
06:59 06:59 06:59
Intake Total 490 / 490 875 / 875
Output Total 3300 / 3300 1974
Balance -2810 / -2810 -1100 / -1100
Review of Systems
-
History Source: Patient
All other systems: Reviewed and negative
Physical Exam
-
General: Well Developed
HEENT: Normocephalic
Respiratory: Clear to Auscultation
Cardiac: Irregular Rhythm and Bradycardic (Still with some 2 to 3-second pauses)
GI: Soft and Nontender
Genito-urinary: No Costovertebral Tender
Musculoskeletal: No Edema
Data Reviewed
-
Total Time Spent with Patient (in minutes): 56
Labs: Labs Reviewed by me (Platelet count 116, sodium 132 potassium 3.9 creatinine stable at 0.7)
[2023-12-06] MEDS: ASPIR LOW (ENTERIC COATED) 81 MG PO (08:38)
[2023-12-06] MEDS: ZETIA 10 MG PO (08:39)
[2023-12-06] MEDS: PLAVIX 75 MG PO (08:39)
--- NOTE | 2023-12-06 10:04 | PTCARENOTE ---
Received patient this morning resting in bed, asking to go to the bathroom. Informed patient that he is unable to ambulate to the bathroom at this time. Did assist him to the bedside commode. Denied any dizziness, unable to move his bowels and
returned to bed. VSS. NPO x meds for surgery today. Family at the bedside. #22 placed left hand for BiVICD placement.
--- NOTE | 2023-12-06 12:06 | CM ---
CM following for DC planning needs.
Met w/ patient today at bedside. Pt. is anticipating procedure today.
Anticipated DC plan is for home, no needs.
Will follow.
--- NOTE | 2023-12-06 12:18 | PTCARENOTE ---
Patient sent to EP lab for BiVICD implant, family at the bedside.
--- NOTE | 2023-12-06 14:52 | ITS.CL.ABL ---
[employer] Boards Stripper Etcher - Ablation
Ablation
Procedure Report:
Date of Procedure: December 06, 2023
Patient : 1945
Procedures: Right Heart Catheterization, BI V ICD implantation
Indication: 1) Class III CHF, LVEF 25%, 2) left bundle Branch Block, QRS 120, significant bradycardia with additional medications including amiodarone and Coreg will require likely 100% pacing as the patient is having greater than 4-second pauses
and ventricular bradycardia in the low 30s.
Implants:
Pulse Generator: Aldagen; Model# DTPA 2 QQ; Serial# [id number]
Atrial Lead: Medtronic: Model# 4574; Serial# [id number]
Right Ventricular Lead: Medtronic; Model# 6935; Serial# [id number]
Left Ventricular Lead: Medtronic; Model# 4798; Serial# [id number]
Hemo Data: RA 4 RV 27/4 PA 27/12 mean 21 PCWP 16 which was answered with 500 cc of normal saline during the procedure
Technique: The patient was prepped and draped in the usual fashion. Local anesthetic was applied to the left prepectoral subcutaneous tissue. A 4 inch incision was made. The left axillary vein was accessed without difficulty. A subcutaneous pocket
was CREATED. Hemostasis was excellent. A right heart catheterization was performed. This demonstrated low right-sided filling pressures and we infused normal saline during the procedure. The leads were introduced with hemostatic peel away
introducer sheaths. The right ventricular lead was placed at the right ventricular apical septum. The atrial lead was placed in the right atrial appendage. The coronary sinus was accessed with the aid of the Attain system. The left ventricular lead
was placed in the high lateral branch with an active-fixation lead which was deployed with clockwise rotations of the lead. 10 volt pacing did not capture the diaphragm. The leads were secured to the pectoralis muscle and fascia. The leads were
appropriately attached to the device. The pocket was irrigated with antibiotic solution. The device and leads were placed in the pocket and the device was secured to pectoralis muscle and facia. The incision was closed with absorbable sutures. The
estimated blood loss was minimal. There were no complications. Device based testing was performed as described below. IV contrast total: 20 cc.
System Analysis:
RA lead: P: 0.2-0.5 mV; Threshold: A-fib; Impedance: 551 ohms.
RV lead: R: 3.5 mV; Threshold: 0.5 V @ 0.5 ms; Impedance: 399 ohms.
LV lead: Threshold: 1.0 V @ 0.5 ms in LV 1-2 configuration; Impedance: 570 ohms.
Final Programming: Tachy: VT/VF:188; Royer: VVIR 70-120.
Conclusion: Uncomplicated Biventricular ICD implant, low filling pressures
Recommendation: Routine post BiV ICD care. Will resume oral anticoagulation in 48 hours as the patient is on DAPT therapy currently with recent stent. Reinitiate amiodarone at 200 mg 3 times daily and Coreg 3.125 mg twice daily. Given low filling
pressures will hold off on IV diuresis.
cc: Dr. Tanesha Issa
--- NOTE | 2023-12-06 15:10 | PTCARENOTE ---
Received patient from the EP lab after BiVICD left upper chest. Aquacel and pressure dressing dry and intact left upper chest with left arm immobobilzer in place. Patient sleepy but alert and oriented. Monitoring VS, V paced on the monitor, post EKG
done and patient instructed to keep HOB elevated at 30 degrees. and DIL at the bedside, call delgado within reach.
[2023-12-06] MEDS: LIPITOR 40 MG PO (17:07)
[2023-12-06] MEDS: PACERONE 200 MG PO ×2 (17:08→22:21)
--- NOTE | 2023-12-06 17:57 | PTCARENOTE ---
Patient sitting oob in the chair, post op VSS. Patient to restart amio this afternoon, BP now 94/69, denies any dizziness or lightheadedness. Spoke with Ashley WHITAKER re: medication parameters for coreg which will also be restarted tonight, ok to give
scheduled amio. Patient taken for CXR, returned to room and resting supine in the recliner, at the bedside.
[2023-12-06] MEDS: ANCEF 5 IV (20:21)
[2023-12-06] MEDS: COREG PO (20:29)
[2023-12-06] MEDS: XANAX PO (22:21)
--- NOTE | 2023-12-06 23:41 | PTCARENOTE ---
Received pt at handoff. AOx3. Tele- V-paced. HR 90s. Assessment noted as documented. L chest wall w/ aquacel and pressure dressing c/d/i. Immobilizer on. Pt aware of activity restrictions. R groin CHELSEA. L wrist c/d/i. BP 89/71 asymptomatic. Chip Ybarra
aware. Coreg held and Amio given per Chip Ybarra MD. Pt offers no complaints at this time. Currently in bed; call sandy w/in reach.
[2023-12-07 04:03] VITALS: BP 106/90
[2023-12-07] MEDS: ANCEF 5 IV (04:12)
[2023-12-07] MEDS: TYLENOL 650 MG PO (04:12)
[2023-12-07 04:55] LABS: Hemoglobin 13.7 g/dL (13.0-18.0); Mean Corp Hgb Conc. 33.4 g/dL (33.0-37.0); Mean Corpuscular Hgb 32.5 pg (27.0-31.0); Mean Corpuscular Volume 97.4 fL (80.0-94.0); Mean Platelet Volume 11.7 fL (7.4-10.4); Platelet Count 113 10^3/uL (130-400); Red Blood Cell Count 4.21 10^6/uL (4.70-6.10); Red Cell Dist. Width 12.4 % (11.5-14.5); White Blood Cell Count 6.8 10^3/uL (4.8-10.8)
[2023-12-07 05:19] LABS: Blood Urea Nitrogen 31 mg/dl (9-20); Calcium 9.2 mg/dl (8.4-10.2); Carbon Dioxide 26 mmol/L (22-30); Chloride 101 mmol/L (98-107); Estimated Creatinine Clearance 75 ml/min; Glucose 92 mg/dl (70-99); Magnesium 2.3 mg/dl (1.6-2.3); Sodium 133 mmol/L (135-145); eGFR > 60.00
[2023-12-07 06:00] VITALS: BMI 26.7
[2023-12-07 07:03] VITALS: BP 109/92
--- NOTE | 2023-12-07 07:49 | W.PN.HOSP.TC ---
Addendum entered and electronically signed by Miguel Shen MD 12/07/23 13:42:
Paroxysmal atrial fibrillation with pauses prior to pacer
Original Note:
Today's Communication/Plan
-
May need further adjustments in his BP meds as continues to have soft blood pressures /carvedilol dosing and time stable on discharge per cardiology
Amiodarone 200 mg 3 times daily
Aspirin and Plavix x 7 days post PANDA/Plavix and Eliquis thereafter
Assessment / Plan
Assessment / Plan
78-year-old male who underwent a right and left heart cath today and showed increased filling pressures and a 70 to 80% mid LAD stenosis lesion that will require eventual intervention by PCI but found to be in significant congestive heart failure in
relation to a recently documented reduced of ejection fraction down to 25% from baseline of prior 45% with severe mitral regurgitation also noted. We excepted patient on a medical service and transferred for cardiology plan is for Plavix loading
and scheduled PCI of the LAD in the coming week also a transesophageal echocardiogram.
Past medical history
Prior CAD with RCA stent 2005
Permanent atrial fibrillation
Benign prostatic hypertrophy
Surgical h/o
Prior left hip replacement
Family History
Mother: at Age
Father: at Age
Social History
Alcohol: None
Drug: None
Tobacco: Non-Smoker
Personal:
Living: With Spouse
Employment: Retired
Allergies
Allergy/AdvReac Type Severity Reaction Status Date / Time
NKA - No Known Allergies Allergy � Unknown Uncoded 12/04/23 07:21
[facility]
[address] [place] [address] [place] [address]

�Medication �Instructions �Recorded �Confirmed �Type
ascorbic acid (vitamin C) 500 mg 1,000 mg PO DAILY 01/14/11 12/04/23 History
tablet (Vitamin C) � � � �
multivitamin with folic acid 400 1 tab PO DAILY ##0 01/14/11 12/04/23 History
mcg tablet (Tab-A-Jacob) � � � �
valsartan 320 mg tablet (Diovan) 320 mg PO DAILY 01/14/11 12/04/23 History
aspirin 81 mg tablet,delayed 81 mg PO DAILY ##0 03/16/16 12/04/23 Rx
release � � � �
alprazolam 0.25 mg tablet 0.25 mg PO HS 10/20/16 12/04/23 History
apixaban 5 mg tablet (Eliquis) 5 mg PO BID 10/20/16 12/04/23 History
atorvastatin 40 mg tablet 40 mg PO QPM 10/20/16 12/04/23 History
chondroitin sulfate A sodium 400 1,200 mg PO BID 10/20/16 12/04/23 History
mg capsule (Chondroitin Sulfate) � � � �
fish oil-dha-epa 1,200 mg-144 1 ea PO BID 10/20/16 12/04/23 History
mg-216 mg capsule � � � �
glucosamine HCl 1,500 mg tablet 1,500 mg PO BID 10/20/16 12/04/23 History
psyllium husk (aspartame) 3.4 gram 1 packet PO BID 10/20/16 12/04/23 History
oral powder packet (Metamucil � � � �
Fiber Singles) � � � �
hydrocodone 5 mg-acetaminophen 325 1 tab PO Q4HPRN PRN pain #10 tabs 08/21/17 12/04/23 Rx
mg tablet � � � �
amiodarone 200 mg tablet 200 mg PO BID 12/04/23 12/04/23 History
carvedilol 3.125 mg tablet 3.125 mg PO BID 12/04/23 12/04/23 History
ezetimibe 10 mg tablet 10 mg PO DAILY 12/04/23 12/04/23 History
furosemide 40 mg tablet (Lasix) 40 mg PO DAILY 12/04/23 12/04/23 History
lisinopril 2.5 mg tablet 2.5 mg PO DAILY 12/04/23 12/04/23 History
nitroglycerin 0.4 mg sublingual 0.4 mg sublingual Q5-15M PRN chest 12/04/23 12/04/23 History
tablet (Nitrostat) pain � � �
tamsulosin 0.4 mg capsule 0.4 mg PO HS 12/04/23 12/04/23 History
Assessment and plan
New onset and worsening cardiomyopathy/HFrEF
-Significant weight gain and JEWELL
-EF on most recent 2D echocardiogram reduced from 45% to 25%
-Worsening mitral regurgitation now severe
-Status post left and right heart cath with increased filling pressures
-Found to have mid LAD lesion of 70 to 80% that will require PCI eventually this admission
-Will need diuretic management for fluid overload first/check renal chemistry numbers today
-Given Plavix load for PCI/CLARISSA later this week
-Heparin drip and lieu of prior course of Eliquis on hold
-Cardiology will follow
CAD
-70 to 80% mid LAD lesion/now status post PCI intervention PANDA to mid LAD
-Prior history of RCA stent in 2005
-Continue statin
-Continue aspirin/plavix post PANDA thereafter Eliquis and Plavix
-Renal numbers stable post cath
-Plavix
Permanent atrial fibrillation
-Periods of bradycardia/pauses as long as 4-1/2 seconds
-On rate control with carvedilol 3.125 mg p.o. twice daily/amiodarone 200 mg twice daily/being held
-Had uncomplicated biventricular ICD implant/low filling pressures noted
-As per cardiology
Essential hypertension
-Continue lisinopril and carvedilol/held till BP stabilized
-Plan will be to reinitiate prior to discharge per cardiology
BPH
-To remain on finasteride and tamsulosin
Thrombocytopenia
-Prior history on a chronic basis
-Unclear etiology
-At prior baseline but will be monitored since on heparin drip
Anxiety /sleep disorder
-Has been using alprazolam 0.25 mg at bedtime-
DVT prophylaxis on heparin drip
Full CODE STATUS
Anticipated Discharge: Within 24 hours
Subjective/Interval History
-
Date of Service: December 07, 2023
No complaints overnight BP was up overnight
Objective Data
-
Labs:
Laboratory Results
12/07/23
04:24
WBC 6.8
Hgb 13.7
Hct 41.0
Plt Count 113 L
Sodium 133 L
Potassium 4.0
Chloride 101
Carbon Dioxide 26
BUN 31 H
Creatinine 0.8
Glucose 92
Calcium 9.2
Vital Signs:
Vital Signs
Temp Pulse Resp BP Pulse Ox
97.4 F 92 16 109/92 94
12/07/23 07:02 12/07/23 07:03 12/07/23 07:02 12/07/23 07:03 12/07/23 07:02
I&O
12/06/23 12/07/23 12/08/23
06:59 06:59 06:59
Intake Total 875 / 875 360 / 360
Output Total 1974 225 / 225
Balance -1100 / -1200 135 / 135
Review of Systems
-
History Source: Patient and Family
All other systems: Not reviewed unless documented
EENT: Reports No Symptoms Reported
Cardiac: Reports Chest Pain (At pacer pocket site with compression bandage)
Physical Exam
-
General: Well Developed
HEENT: Normocephalic
Respiratory: Clear to Auscultation
Cardiac: Irregular Rhythm (paced ) and Other (Upper chest wall left side with compression bandage on pacer site)
GI: Soft
Musculoskeletal: No Edema
Skin: IV Access / Catheter Site
Neuro: Awake
Psych: Calm
Data Reviewed
-
Total Time Spent with Patient (in minutes): 56
Labs: Labs Reviewed by me (CBC stable/platelets remain at 113,000 renal status stable post cath)
[2023-12-07] MEDS: PLAVIX 75 MG PO (08:06)
[2023-12-07] MEDS: ZETIA 10 MG PO (08:06)
[2023-12-07] MEDS: ASPIR LOW (ENTERIC COATED) 81 MG PO (08:06)
[2023-12-07] MEDS: COREG 3.125 MG PO (08:07)
--- NOTE | 2023-12-07 08:09 | PTCARENOTE ---
Patient received from nightshift nurse. Patient is alert and oriented x4, pleasant. Denies pain/discomfort. 100% V-paced. HR 90s. Audible heart tones. BP 106/71. RA. Oxygen saturation 94%. Upon auscultation, lung sounds clear. Abdomen round. +BS.
Voids in urinal or in BR. Standby assist to ambulate in room r/t LUE immobilizer. LCW PPM incision is covered by pressure dressing. LRA cath site dressing is clean, dry, intact. Will continue to monitor.
[2023-12-07 08:10] VITALS: BP 106/71
[2023-12-07] MEDS: PACERONE 200 MG PO (08:10)
--- NOTE | 2023-12-07 08:51 | PN.CDI ---
CDI
- -
CDI:
Physician Documentation Request
Admit Date: 12/04/23 09:01
Dear Doctor Ac,
Patient admitted for single vessel CAD.
12/05 Cardiology PN: 'Paroxysmal Afib'
12/07 Hospitalist PN: 'Permanent atrial fibrillation'
If possible, please provide further specificity regarding atrial fibrillation, such as:
Paroxysmal atrial fibrillation - terminates spontaneously or with intervention within 7 days of onset
Permanent atrial fibrillation - when a decision has been made to accept the presence of AF and there is no further attempt to restore or maintain sinus rhythm
Other - please specify
Use of terms such as suspected, likely, concern for, or probable (associated with a specific diagnosis that is being evaluated, monitored, or treated as if it exists) are acceptable and can be coded in the inpatient setting, when documented at the
time of discharge.
Thank you,
Jyoti Minor RN, BSN
CDI Specialist
Available via [place] text
Please use your independent medical judgment in providing your response.
[2023-12-07 11:55] VITALS: BP 100/73
--- NOTE | 2023-12-07 11:59 | W.PN.CARDCBS ---
Today's Communication / Plan
-
Continue low-dose Coreg
No standing dose of Lasix for discharge, however patient to monitor daily weights closely
Consider addition of SGLT2 inhibitor as an outpatient
Plan to repeat resume Eliquis tomorrow evening post ICD. Continue aspirin and Plavix for 1 week, then stop aspirin and continue Plavix and Eliquis
Outpatient BANDAR/ARB stopped due to hypotension, consider adding back as outpatient
Continue amiodarone 200 mg twice daily for now
Outpatient cardiac follow-up next week arranged
Impression / Plan
-
PCP: Dr. Niño
Primary Photographic Supervisor: Dr Tanesha Issa
Impression:
Acute HFrEF
CM EF 25-30% by echo 11/29/23
s/p LAD PCI 12/05/23
Persistent Afib
Sinus pauses and intermittent bradycardia s/p Medtronic BIV ICD implant 12/06/23
Hypotension
CAD
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
s/p ostial PDA and RCA PCI and PANDA in 2005
patent RCA stents, known BROKERAGE COORDINATOR Circ, stepdown in the mid LAD with diffuse 50% stenosis and a tubular 70 to 80% stenosis in the mid to distal LAD by cath 12/04/23
Severe MR by echo 11/29/23
Hyperlipidemia
HTN
Hyponatremia
Elevated LFTs
irritable bowel disease
Echo 11/29/23: EF 25-30%, global hypokinesis, normal RV size and mildly reduced RV systolic function, severe MR, mild to mod aortic regurgitation, mild TR with PAP 41 mmHg, trivial pericardial effusion
Plan:
-Patient was seen in the office 10/23/23 and then called the office 11/12/23 to report SOB and ongoing LE edema despite stopping amlodipine at his last visit. He had been prescribed lasix by PCP as of 11/15/23. Echo was ordered and as noted on echo
11/29/23 his EF was down to 25-30% and was previously 45%.
-Patient had cath 12/04/23 with results as noted above and new LAD lesion. Status post LAD PCI 12/05/2023
-Patient's PCWP was 31 on RHC. Patient was given an unknown dose of Lasix in the manager labor delivery 12/04/23 and had increased urine output resulting in hypotension. Patient was given NSS 500 ml bolus and seemed to improve.
-his PCWP was 16 at time of BIV ICD implant 12/06/23 and was given additional 500cc of fluid.
-his BPs remain low but stable. he has been ambulatory around unit without difficulty.
-low dose coreg and amio have been resumed post ICD implant. no bandar/arb/aldactone with current hypotension. consider addition of SGLT 2 inhibitor as OP, does not appear to be cost prohibitive to patient
-will not plan to DC on standing lasix dose due to hypotension, however advised to call for SOB, LE edema or weight gain of 3 pounds in 1 day or 5 pounds in 1 week
-his afib has previously been felt to be persistent since 2021. he also has severe MR and may need to be considered for intervention, to be discussed further as OP. unclear if would maintain SR, however can discuss attempting CLARISSA/CV as OP
-Will restart Eliquis tomorrow evening as per EP post ICD. Will continue aspirin and Plavix for 1 week, then stop aspirin and continue Eliquis and Plavix.
-OP cardiac follow up arranged
HPI: Mr Clark is a 78-year-old gentleman with past medical history of hypertension, hyperlipidemia, coronary artery disease status post prior multiple RCA stents in 2005, chronic atrial fibrillation on long-term Eliquis, last dose morning of
December 03, 2023, mild memory deficits with 2-month history of progressively worsening dyspnea on exertion found to have a new reduction in LV systolic function of 25 to 30%, reduced from 45 to 50% previously now being referred for a left and right
heart catheterization.
Progress Note - Photographic Supervisor
Subjective
Date of Service: December 07, 2023
Feels well. Ambulatory around unit without dizziness or lightheadedness. Denies chest pain or shortness of breath.
Objective
Labs:
12/07/23 04:24
12/07/23 04:24
Labs
Hgb 13.7 g/dL (13.0-18.0) 12/07/23 04:24
Hct 41.0 % (39.0-52.0) 12/07/23 04:24
Plt Count 113 10^3/uL (130-400) L 12/07/23 04:24
APTT 69.4 Sec (23.4-35.0) H 12/06/23 04:56
Sodium 133 mmol/L (135-145) L 12/07/23 04:24
Potassium 4.0 mmol/L (3.5-5.1) 12/07/23 04:24
BUN 31 mg/dl (9-20) H 12/07/23 04:24
Creatinine 0.8 mg/dL (0.7-1.3) 12/07/23 04:24
Glucose 92 mg/dl (70-99) 12/07/23 04:24
Vital Signs and I&O:
Vital Signs
Temp Pulse Resp BP Pulse Ox
97.2 F 98 16 106/71 98
12/07/23 11:56 12/07/23 11:56 12/07/23 11:56 12/07/23 08:07 12/07/23 11:56
Vital Signs
Temp Pulse Resp BP Pulse Ox
97.2 F 98 16 106/71 98
12/07/23 11:56 12/07/23 11:56 12/07/23 11:56 12/07/23 08:07 12/07/23 11:56
Intake & Output
12/05/23 12/06/23 12/07/23 12/08/23
07:59 07:59 07:59 07:59
Intake Total 490 / 490 875 / 875 360 / 360
Output Total 3300 / 3300 2075 / 2075 125 / 125
Balance -2810 / -2810 -1200 / -1200 235 / 235
Physical Exam
Physical Exam
GEN: No distress, awake, alert, oriented x3. Sitting in chair
HEENT: supple, anicteric, mmm, EOMI
LUNGS: CTA bilaterally, no wheezes/rales
CV: Irreg, S1/S2, 2/6 murmur
ABD: soft, BS+, NT/ND
EXT: No cyanosis, clubbing. 1+ edema of bilateral lower extremity
NEURO: Gross non-focal
SKIN: Warm, pink, dry. No rash
[2023-12-07 12:00] VITALS: BP 97/75
--- NOTE | 2023-12-07 13:12 | W.DCSUMMARY ---
Discharge Summary
Discharge Data
Date of Admission: 12/04/23
Date of Discharge: 12/07/23
-
Pending Results: No
Hospital Course
This is a 78-year-old male who was admitted under [facility] of cardiology service for right and left heart cath evaluation after ongoing symptomatology included shortness of breath and ongoing lower extremity edema with an echocardiogram performed
showing a 25 to 30% EF where previously had been 45% and underwent cardiac catheterization noting again severe mitral regurgitation substantially and echo results also along with evidence of previous inferior wall [place] and status post PCI and PANDA to
the RCA in 2002 along with patent RCA stents but is stepdown in the mid LAD with diffuse stenosis of 50% and a tubular 70 to 80% stenosis of the mid to distal LAD prompting need for admission he was admitted to the medical service where I started
seeing the patient. Initial thought was to because of clinical presentation of CHF concomitantly patient would benefit from diuretic management in preparation for an eventual PCI to the mid LAD. This became problematic as with a single dosage of
IV furosemide the patient became hypotensive prompting decision to proceed with PCI to the LAD on 05 December/of note patient's pulmonary capillary wedge pressure was 16 at the time of right heart cath is also noted to have persisting paroxysms of
atrial fibrillation with pausing and hypotension requiring additional fluid boluses at after initial attempt at diuresis decision was made to insert a BiV ICD implant on 06 December. Patient was placed on dual antiplatelet therapy for a week's time
he was resumed on his prior dosing of Eliquis 5 mg twice a day and will stop his aspirin therapy after 1 week. At this point there is no plan for standing dosage of furosemide due to his ongoing hypotension and we have also discontinued his prior
dosing of valsartan and lisinopril. He will remain on low-dose carvedilol and amiodarone will stay at 200 mg twice a day for next 4 weeks and then transition to single dose daily with consideration toward the addition of an SGLT 2 inhibitor as an
outpatient/he has been given scheduled follow-up with the cardiology service
Discharge Plan
-
Patient Disposition: Home (Routine Discharge)
Discharge Diagnosis/Procedures: angioplasty and stent to Left Anterior Descending artery 12/05/23,
BiV ICD 12/06/23
Diet: Low Cholesterol and 2 Gram Sodium
Driving Restrictions: No driving for 1 week
Bathing Restrictions: OK to Shower
Blood Work: BMP in 1 week
Other Services: Cardiac Rehab
Specialty Instructions: Weigh Daily- Call MD for wt gain/loss 3 lbs overnight/5 lbs in 1 week
Stop these medications:: Stop low-dose aspirin after 1 week
Take amiodarone twice a day for 4 weeks then once a day thereafter
Stop valsartan
Instructions: *DCA Heart Failure Instructions
Stand Alone Forms: DC Instructions- Cath/EP Lab, DC Inst - Implanted Device
Referrals:
[facility] [Outside] - 12/17/23 8:30 am
(Cardiac Rehab Orientation appointment is on 12/17/2023 at 8:30 AM.
The Cardiac Rehab gym is located on the first floor of the [facility].)
Lanny Robison PA-C [Specified Professional Personl] - 12/12/23 1:40 pm (Incision check appointment and Cardiology followup appointment)
Maldonado Niño MD [Family Provider] -
Prescriptions:
New
clopidogrel 75 mg Tablet
75 mg PO DAILY Qty: 30 0RF
Continued
ascorbic acid (vitamin C) [Vitamin C] 500 MG tablet
1,000 mg PO DAILY
multivitamin with folic acid [Tab-A-Jacob] 1 TABLET tablet
1 tab PO DAILY Qty: 0
atorvastatin 40 MG tablet
40 mg PO QPM
alprazolam 0.25 MG tablet
0.25 mg PO HS
Eliquis 5 MG tablet
5 mg PO BID
Chondroitin Sulfate 400 MG capsule
1,200 mg PO BID
fish oil-dha-epa 1 EACH capsule
1 ea PO BID
glucosamine HCl 1,500 MG tablet
1,500 mg PO BID
Metamucil Fiber Singles 1 PACKET powder in packet
1 packet PO BID
Patient Comments:
2 tsp
hydrocodone-acetaminophen 1 TABLET tablet
1 tab PO Q4HPRN PRN (Reason: pain) Qty: 10 0RF
ezetimibe 10 mg Tablet
10 mg PO DAILY
carvedilol 3.125 mg Tablet
3.125 mg PO BID
tamsulosin 0.4 mg Capsule
0.4 mg PO HS
nitroglycerin [Nitrostat] 0.4 mg Tablet, Sublingual
0.4 mg SUBLINGUAL Q5-15M PRN (Reason: chest pain)
amiodarone 200 mg Tablet
200 mg PO BID Qty: 0 0RF
Rx Instructions:
Mg twice daily for 4 weeks then 1 tablet daily
aspirin 81 MG tablet,delayed release (DR/EC)
81 mg PO DAILY Qty: 0 0RF
Rx Instructions:
Take for 1 week then stop
Discontinued
valsartan [Diovan] 320 MG tablet
320 mg PO DAILY
furosemide [Lasix] 40 mg Tablet
40 mg PO DAILY
lisinopril 2.5 mg Tablet
2.5 mg PO DAILY
Discharge Orders:
Discharge Patient (As Directed); Ordered 12/07/23
Ordered By: Miguel Shen
Care Plan Goals
Care Plan Goals:
Problem: Readiness for enhanced knowledge related to diagnosis and treatment plan
Goal: Understand your diagnosis and treatment plan needs, including medications if applicable.
Instructions: Know your diagnosis, underlying causes and treatment plan options, including medications if applicable. Consult with your health care team to learn about your diagnosis and treatment plan, including medications if applicable.
--- NOTE | 2023-12-07 13:20 | W.DS.TRANS ---
DC Summary - Account Officer
-
Discharge Instructions:
Sleep Apnea Risk Intermediate
Discharge Diagnosis/Procedures angioplasty and stent to Left Anterior
Descending artery 12/05/23,
BiV ICD 12/06/23
Diet Low Cholesterol,2 Gram Sodium
Driving Restrictions No driving for 1 week
Bathing Restrictions OK to Shower
Blood Work BMP in 1 week
Other Services Cardiac Rehab
Specialty Instructions Weigh Daily
Stop these medications: Stop low-dose aspirin after 1 week
Take amiodarone twice a day for 4 weeks then
once a day thereafter
Stop valsartan
Instructions: *DCA Heart Failure Instructions
Stand-Alone Forms: DC Instructions- Cath/EP Lab
DC Inst - Implanted Device
Changes to Home Medications: No
Discharge Medications:
DC Medications w/original date entered in [facility]
ascorbic acid (vitamin C) 500 mg tablet (Vitamin C) 1,000 mg PO DAILY 01/14/11
multivitamin with folic acid 400 mcg tablet (Tab-A-Jacob) 1 tab PO DAILY ##0 01/14/11
alprazolam 0.25 mg tablet 0.25 mg PO HS 10/20/16
apixaban 5 mg tablet (Eliquis) 5 mg PO BID 10/20/16
atorvastatin 40 mg tablet 40 mg PO QPM 10/20/16
chondroitin sulfate A sodium 400 mg capsule (Chondroitin Sulfate) 1,200 mg PO BID 10/20/16
fish oil-dha-epa 1,200 mg-144 mg-216 mg capsule 1 ea PO BID 10/20/16
glucosamine HCl 1,500 mg tablet 1,500 mg PO BID 10/20/16
psyllium husk (aspartame) 3.4 gram oral powder packet (Metamucil Fiber Singles) 1 packet PO BID 10/20/16
hydrocodone 5 mg-acetaminophen 325 mg tablet 1 tab PO Q4HPRN PRN pain #10 tabs 08/21/17
carvedilol 3.125 mg tablet 3.125 mg PO BID 12/04/23
ezetimibe 10 mg tablet 10 mg PO DAILY 12/04/23
nitroglycerin 0.4 mg sublingual tablet (Nitrostat) 0.4 mg sublingual Q5-15M PRN chest pain 12/04/23
tamsulosin 0.4 mg capsule 0.4 mg PO HS 12/04/23
amiodarone 200 mg tablet 200 mg PO BID #0 tabs 12/07/23
aspirin 81 mg tablet,delayed release 81 mg PO DAILY ##0 12/07/23
clopidogrel 75 mg tablet 75 mg PO DAILY #30 tabs 12/07/23
Home Medication Changes
amiodarone 200 mg tablet 200 mg PO BID #0 tabs 12/07/23 (reduced to single dose daily after 4 weeks)
aspirin 81 mg tablet,delayed release 81 mg PO DAILY ##0 12/07/23 (stopped after 1 week)
clopidogrel 75 mg tablet 75 mg PO DAILY #30 tabs 12/07/23
Pending Results: No
Total time spent discharging patient (in min): 43
--- NOTE | 2023-12-07 14:07 | CM ---
CM following for DC planning needs.
Met w patient, spouse at bedside.
Pt. anticipating DC to home today and identifies no needs.
Plan is for home, no needs.
--- NOTE | 2023-12-07 14:51 | W.PN.UPDATE ---
Update Note
Progress Note Update
Patient's discharge medication list did not reflect holding Eliquis until 12/08/23 PM dose. I called and left message with patient on his cell phone with these instructions. He was advised to call our office or the nursing station back with any
questions about his medications. d/w nursing
--- NOTE | 2023-12-07 15:00 | PTCARENOTE ---
playground monitor discontinued so patient could change into civilian clothes. Went over discharge instructions, medication instructions, last dose of medications, and education with patient and his . PIV x3 discontinued. Upon removing the tape
for LAC 22G PIV, a skin tear appeared from the tape. Cleansed with CHG and adaptic foam applied to the skin tear. packed his personal belongings. Patient taken down to [facility] lobby via wheelchair with volunteer.
== END 2023-12-07 15:29 | disposition home or self-care (01) | DRG 275 ==
LOC: IVU 09:01
PROVIDERS: Internal Medicine Cardiovascular Disease; Nuclear Medicine Nuclear Cardiology; Nurse Practitioner Adult Health; Physician Assistant Medical; ADMITTING PHYSICIAN Internal Medicine Interventional Cardiology; ATTENDING PHYSICIAN Internal Medicine; FAMILY PHYSICIAN Family Medicine; OTHER PHYSICIAN Thoracic Surgery (Cardiothoracic Vascular Surgery)
PROC: B2111ZZ Fluoroscopy of Multiple Coronary Arteries using Low Osmolar Contrast (ICD-10-PCS; 2023-12-04)
PROC: 4A023N8 Measurement of Cardiac Sampling and Pressure, Bilateral, Percutaneous Approach (ICD-10-PCS; 2023-12-04)
PROC: 4A023N7 Measurement of Cardiac Sampling and Pressure, Left Heart, Percutaneous Approach (ICD-10-PCS; 2023-12-05)
PROC: 027034Z Dilation of Coronary Artery, One Artery with Drug-eluting Intraluminal Device, Percutaneous Approach (ICD-10-PCS; 2023-12-05)
PROC: 02HL3KZ Insertion of Defibrillator Lead into Left Ventricle, Percutaneous Approach (ICD-10-PCS; 2023-12-06)
PROC: 0JH609Z Insertion of Cardiac Resynchronization Defibrillator Pulse Generator into Chest Subcutaneous Tissue and Fascia, Open Approach (ICD-10-PCS; 2023-12-06)
PROC: 4A023N6 Measurement of Cardiac Sampling and Pressure, Right Heart, Percutaneous Approach (ICD-10-PCS; 2023-12-06)
PROC: 02HK3KZ Insertion of Defibrillator Lead into Right Ventricle, Percutaneous Approach (ICD-10-PCS; 2023-12-06)
PROC: 02H63KZ Insertion of Defibrillator Lead into Right Atrium, Percutaneous Approach (ICD-10-PCS; 2023-12-06)
DX: I11.0 Hypertensive heart disease with heart failure (principal); I50.21 Acute systolic (congestive) heart failure; E87.1 Hypo-osmolality and hyponatremia; I25.10 Atherosclerotic heart disease of native coronary artery without angina pectoris; R00.1 Bradycardia, unspecified; I44.7 Left bundle-branch block, unspecified; I95.9 Hypotension, unspecified; T50.1X5A Adverse effect of loop [high-ceiling] diuretics, initial encounter; I42.9 Cardiomyopathy, unspecified; I25.82 Chronic total occlusion of coronary artery; I48.0 Paroxysmal atrial fibrillation; N40.0 Benign prostatic hyperplasia without lower urinary tract symptoms; I34.0 Nonrheumatic mitral (valve) insufficiency; R79.89 Other specified abnormal findings of blood chemistry; D69.6 Thrombocytopenia, unspecified; F41.9 Anxiety disorder, unspecified; G47.00 Insomnia, unspecified; E78.5 Hyperlipidemia, unspecified; I25.2 Old myocardial infarction; Z95.5 Presence of coronary angioplasty implant and graft; Z79.82 Long term (current) use of aspirin; Z79.02 Long term (current) use of antithrombotics/antiplatelets; Z79.01 Long term (current) use of anticoagulants
CPT/HCPCS: 33225; 33249; 71045; 76937; 80048; 80053; 80061; 83605; 83735; 85027; 85347; 85730; 93005; 93451; 93456; 99152; 99153; C1725; C1730; C1769; C1777; C1874; C1882; C1887; C1892; C1894; C1898; C1900; C9600; Q9967

== ENCOUNTER 2023-12-18 06:18 | Day surgery (SDC) | payer MEDICARE, BC, SELFPAY | END 2023-12-18 10:20 | disposition home or self-care (01) | LOC: CATH 06:18 | PROVIDERS: ATTENDING PHYSICIAN Internal Medicine Cardiovascular Disease; FAMILY PHYSICIAN Family Medicine; OTHER PHYSICIAN Internal Medicine Cardiovascular Disease | DX: I48.91 Unspecified atrial fibrillation (principal); I08.3 Combined rheumatic disorders of mitral, aortic and tricuspid valves; Z79.01 Long term (current) use of anticoagulants; I25.10 Atherosclerotic heart disease of native coronary artery without angina pectoris; Z95.5 Presence of coronary angioplasty implant and graft | CPT/HCPCS: 93312; 93325; 93320; 92960; 93005 ==

== ENCOUNTER → 2024-01-10 14:37 | Outpatient (REF) | payer MEDICARE, BC, SELFPAY | LOC: DHCBS MAIN 14:37 | PROVIDERS: ATTENDING PHYSICIAN Physician Assistant; FAMILY PHYSICIAN Family Medicine | DX: I25.10 Atherosclerotic heart disease of native coronary artery without angina pectoris (principal); I42.9 Cardiomyopathy, unspecified; Z95.810 Presence of automatic (implantable) cardiac defibrillator | CPT/HCPCS: 93306 ==

== ENCOUNTER 2024-01-11 14:53 | Outpatient (RCR) | payer MEDICARE, BC, SELFPAY | END 2024-01-11 23:59 | disposition home or self-care (01) | LOC: CRHB 14:53 | PROVIDERS: ATTENDING PHYSICIAN Internal Medicine Cardiovascular Disease | DX: I25.10 Atherosclerotic heart disease of native coronary artery without angina pectoris (principal); Z95.5 Presence of coronary angioplasty implant and graft | CPT/HCPCS: G0422; G0423 ==

== ENCOUNTER 2024-02-11 13:39 | Outpatient (RCR) | payer MEDICARE, BC, SELFPAY | END 2024-02-11 23:59 | disposition home or self-care (01) | LOC: CRHB 13:39 | PROVIDERS: ATTENDING PHYSICIAN Internal Medicine Cardiovascular Disease | DX: I25.10 Atherosclerotic heart disease of native coronary artery without angina pectoris (principal); Z95.5 Presence of coronary angioplasty implant and graft | CPT/HCPCS: G0422; G0423 ==

== ENCOUNTER 2024-02-25 13:29 | Outpatient (RCR) | payer MEDICARE, BC, SELFPAY | END 2024-02-25 23:59 | disposition home or self-care (01) | LOC: CRHB 13:29 | PROVIDERS: ATTENDING PHYSICIAN Internal Medicine Cardiovascular Disease | DX: I25.10 Atherosclerotic heart disease of native coronary artery without angina pectoris (principal); Z95.5 Presence of coronary angioplasty implant and graft; I48.0 Paroxysmal atrial fibrillation; Z95.810 Presence of automatic (implantable) cardiac defibrillator | CPT/HCPCS: G0422; G0423 ==

== ENCOUNTER 2024-03-14 13:08 | Emergency (ER) | payer MEDICARE, BC, SELFPAY ==
[2024-03-14 13:13] VITALS: BP 121/82
--- NOTE | 2024-03-14 14:15 | ED.MUSCINJ ---
HPI-Injury
General
Chief Complaint: Musculo-Skeletal Complaint
Source: patient
Exam Limitations: none
Time Seen by Provider: 03/14/24 13:55
Nursing documentation reviewed up to this point in time: agreed with
Travel History
Have you had any contact with someone who has COVID-19?: No
Do you have any symptoms of coronavirus? Fever > 100 degrees, chills, cough, shortness of breath, sore throat, loss of taste or smell, muscle aches, or headache?: No
History of Present Illness-Injury
Initial Injury comments:
78-year-old male on [employer] for A-fib, history HTN, HLD states he tripped crossing the street in his neighborhood about 2-1/2 hours ago. Struck the right arm on the sidewalk, denies hitting his head or any other injury.
Past History
Past History
ED Past Medical History: Arrthythmia (Afib on Eliquis), HTN and [place]
ED Past Surgical History: Cardiac
Social History
Tobacco: Non-smoker
Alcohol: Occasional
Drug: None
Personal:
Living: with family
Employment: Retired
Family History
Family History: Other (Father with CHF); Negative CAD
Review of Systems
Review of Systems
Allergies reviewed?: Yes
All Other Systems: ROS reviewed and negative except as documented in HPI and ROS
Respiratory: Denies trouble breathing
Cardiac: Denies chest pain
ABD/GI: Denies abdominal pain or nausea
Musculoskeletal: Reports other (pain right elbow); Denies edema
Skin: Reports other (few scratches right arm)
Neurological: Denies headache, weakness or numbness
Musculoskeletal Injury Exam
Musculoskeletal Injury Exam
Right Elbow:
Pain with Movement?: Moderate
Tender to palpation?: Moderate
Soft tissue swelling?: Mild
External deformity and angulation?: None
Crepitus with movement?: No
Joint instability?: No
Malalignment/deformity?: No
Range of motion: Limited
Distal skin color and temperature: normal-warm & good color
Capillary Refill: normal
Normal distal neurovascular exam?: Yes
Phy Exam
Physical Exam
Physical Exam:
GENERAL: No acute distress. A&Ox3.
CONSTITUTIONAL: Afebrile.
EYES: PERRL, conjunctivae normal
Neck: Supple
ENMT: moist mucus membranes, Pharynx nl
RESPIRATORY: Regular respirations, nonlabored, lungs clear.
CARDIOVASCULAR: Regular rate and rhythm, no murmurs, no rubs.
GI: Soft, nontender, normal BS
MUSCULOSKELETAL: Moves with ease. Well perfused.
SKIN: Warm, dry, pink
PSYCH: Normal mood and affect. Well kept, interactive and appropriate
NEUROLOGIC: Awake, alert and oriented. No focal neurological deficits
Injury Course
Orders/Labs/Results
Orders:
Orders
03/14/24 13:17
Elbow, 3 View, Right [CR Elbow - Right Min 3 Views] Urgent
Comment:
Reason For Exam: fall
03/14/24 14:27
Long Arm Right-Treatment ONCE
Sling Right-Treatment ONCE
Procedures
Splint Check
Splint checked by provider?: Yes
Circulation/Movement/Sensation post splint application: brisk cap refill and full sensation
MDM/Problems Addressed
MDM/Problems Addressed:
78-year-old male on [employer] for A-fib, history HTN, HLD states he tripped crossing the street in his neighborhood about 2-1/2 hours ago. Struck the right arm on the sidewalk, denies hitting his head or any other injury.
2:15 PM x-ray right elbow radiology report read:
IMPRESSION:
Comminuted intra-articular fracture of the distal left humerus, as noted above.
Pictures texted to orthopedic Dr. Johnson. He will see patient in the office after the weekend.
Requests he hold his Eliquis. Last dose was this 8 a.m.
Long arm posterior splint and sling applied
Reviewed signs of compartment syndrome and return symptoms w pt and who express understanding
I made an appointment for the patient to see Dr. Johnson at 10:30 AM on Sunday.
*Critical Care Note
Total Time (30-74mins, 75-104mins- exclusive of procedures): Not Applicable
ED Attending Note
-
Portions of this chart may have been created with voice recognition software.� Occasional wrong word or��sound alike� substitutions may have occurred due to the inherent limitations of voice recognition software.
Discharge Plan
Departure
Patient Disposition: Home (Routine Discharge)
Date of Disposition: 03/14/24
Time of Disposition: 15:06
Patient with high blood pressure during this ER visit?: No
Condition: Good
Discharge Problem:
Fall from slip, trip, or stumble, Elbow fracture, right
Instructions: Using Cold for Pain, Elbow Fracture, Adult ED
Prescriptions:
No Action
ascorbic acid (vitamin C) [Vitamin C] 500 MG tablet
1,000 mg PO DAILY
multivitamin with folic acid [Tab-A-Jacob] 1 TABLET tablet
1 tab PO DAILY Qty: 0
atorvastatin 40 MG tablet
40 mg PO QPM
alprazolam 0.25 MG tablet
0.25 mg PO HS
Eliquis 5 MG tablet
5 mg PO BID
Metamucil Fiber Singles 1 PACKET powder in packet
1 packet PO BID
Patient Comments:
2 tsp
ezetimibe 10 mg Tablet
10 mg PO DAILY
carvedilol 3.125 mg Tablet
3.125 mg PO BID
tamsulosin 0.4 mg Capsule
0.4 mg PO HS
nitroglycerin [Nitrostat] 0.4 mg Tablet, Sublingual
0.4 mg SUBLINGUAL Q5-15M PRN (Reason: chest pain)
clopidogrel 75 mg Tablet
75 mg PO DAILY Qty: 30 0RF
amiodarone 200 mg Tablet
200 mg PO BID Qty: 0 0RF
Rx Instructions:
Mg twice daily for 4 weeks then 1 tablet daily
aspirin 81 MG tablet,delayed release (DR/EC)
81 mg PO DAILY Qty: 0 0RF
Rx Instructions:
Take for 1 week then stop
finasteride 5 mg Tablet
5 mg PO DAILY
Referrals:
Navarro Johnson MD [Active] - Follow up in 2-3 days
Maldonado Niño MD [Family Provider] -
Activity Restrictions/Additional Instructions:
As we discussed, keep the splint on and wear the sling when up and around until you see Dr. Johnson next week.
Tylenol 1000 mg up to 3 times a day as needed for pain.
You will most likely need surgery.
You have an appointment with Dr. Johnson at 10:30 Sunday morning. Arrive 15 minutes early.
Interventions
Interventions:
*Risk Screen - Suicide Last Done: 03/14/24 13:13
*General Assessment Last Done: 03/14/24 13:13
*Neglect/Abuse Screening Last Done: 03/14/24 13:13
ED- Fall Risk Assessment Last Done: 03/14/24 15:24
*ED COVID-19 Vaccine History Last Done: 03/14/24 15:24
*Nursing Disposition Last Done: 03/14/24 15:24
ED-Musculoskeletal Assessment Last Done: 03/14/24 15:22
Discharge Date and Time
Discharge Date/Time: 03/14/24 15:25
Print Language: MOZAMBICAN
== END 2024-03-14 15:25 | disposition home or self-care (01) ==
LOC: EMR 13:08
PROVIDERS: EMERGENCY PHYSICIAN Emergency Medicine; FAMILY PHYSICIAN Family Medicine
DX: S42.402A Unspecified fracture of lower end of left humerus, initial encounter for closed fracture (principal); W01.0XXA Fall on same level from slipping, tripping and stumbling without subsequent striking against object, initial encounter; I10 Essential (primary) hypertension; E78.5 Hyperlipidemia, unspecified; I48.91 Unspecified atrial fibrillation; Z79.01 Long term (current) use of anticoagulants
CPT/HCPCS: 99283; 29105; 73080

== ENCOUNTER 2024-03-18 06:31 | Day surgery (SDC) | payer MEDICARE, BC, SELFPAY ==
[2024-03-18] VITALS (12 sets, daily range): BP systolic 112–128; BP diastolic 75–94; BMI 25.1
[2024-03-18] MEDS: TYLENOL 1000 MG PO (10:30)
[2024-03-18 10:31] LABS: Hematocrit 31.4 % (39.0-52.0); Mean Corpuscular Hgb 34.1 pg (27.0-31.0); Mean Corpuscular Volume 97.2 fL (80.0-94.0); Mean Platelet Volume 11.1 fL (7.4-10.4); Platelet Count 109 10^3/uL (130-400); Red Blood Cell Count 3.23 10^6/uL (4.70-6.10); Red Cell Dist. Width 12.7 % (11.5-14.5); White Blood Cell Count 5.2 10^3/uL (4.8-10.8)
[2024-03-18] MEDS: CELEBREX 200 MG PO (10:46)
[2024-03-18] MEDS: NORMOSOL-R 1000 IV (10:47)
[2024-03-18] MEDS: DILAUDID 0.25 MG IV ×2 (15:54→16:10)
[2024-03-18] MEDS: DEMEROL 12.5 MG IV (16:30)
[2024-03-18] MEDS: TYLENOL 650 MG PO (17:38)
== END 2024-03-18 18:12 | disposition home or self-care (01) ==
LOC: SDS 06:31
PROVIDERS: ATTENDING PHYSICIAN Orthopaedic Surgery
DX: S42.491A Other displaced fracture of lower end of right humerus, initial encounter for closed fracture (principal); W01.0XXA Fall on same level from slipping, tripping and stumbling without subsequent striking against object, initial encounter
CPT/HCPCS: 24587; C1713; 73080; 76000; 85027

== ENCOUNTER 2024-06-30 06:41 | Day surgery (SDC) | payer MEDICARE, BC, SELFPAY ==
--- NOTE | 2024-06-30 09:03 | ITS.CL.CARDI ---
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
Cardioversion
Procedure Report:
Cardioversion Report:
Date of Procedure: 06/30/2024
Procedure: Cardioversion
Indication: Symptomatic atrial fibrillation
Performing Physician: Tristan Betancur MD
Technique: The patient was brought to the holding area. Signed informed consent was obtained. A time out was called and performed. The patient was anesthetized by the anesthesia service. Anticoagulation status was reviewed and appropriate. R2 pads
were placed anteriorly and posteriorly. A 200 J synchronized biphasic shock was given and patient converted to atrially paced rhythm without significant bradycardia. There were no complications.
Conclusion: Uncomplicated cardioversion from atrial fibrillation to atrially paced rhythm.
Recommendation: Routine post cardioversion care. Continue intermediate anticoagulation.
== END 2024-06-30 08:54 | disposition home or self-care (01) ==
LOC: CATH 06:41
PROVIDERS: ATTENDING PHYSICIAN Nuclear Medicine Nuclear Cardiology; FAMILY PHYSICIAN Family Medicine; OTHER PHYSICIAN Internal Medicine Cardiovascular Disease
DX: I48.0 Paroxysmal atrial fibrillation (principal); I10 Essential (primary) hypertension; E78.5 Hyperlipidemia, unspecified; I25.10 Atherosclerotic heart disease of native coronary artery without angina pectoris; I25.2 Old myocardial infarction; Z95.5 Presence of coronary angioplasty implant and graft; I34.0 Nonrheumatic mitral (valve) insufficiency; K76.0 Fatty (change of) liver, not elsewhere classified; Z79.01 Long term (current) use of anticoagulants; Z79.02 Long term (current) use of antithrombotics/antiplatelets
CPT/HCPCS: 92960; 93005

== ENCOUNTER → 2024-10-31 12:46 | Outpatient (REF) | payer MEDICARE, BC, SELFPAY | LOC: RCS 12:46 | PROVIDERS: ATTENDING PHYSICIAN Internal Medicine Cardiovascular Disease; FAMILY PHYSICIAN Family Medicine | DX: I48.0 Paroxysmal atrial fibrillation (principal); I42.9 Cardiomyopathy, unspecified | CPT/HCPCS: 93306 ==

== ENCOUNTER 2025-01-21 05:58 | Day surgery (SDC) | payer MEDICARE, BC, SELFPAY ==
[2024-12-29 13:00] VITALS: BMI 28.0
--- NOTE | 2024-12-30 15:48 | W.PN.UPDATE ---
Update Note
Progress Note Update
Chest CT 12/29/24:
Partial nonopacification of the left atrial appendage likely related to incomplete contrast filling; however, cannot rule out thrombus. The left atrium is otherwise well opacified.
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
5 mm left lower lobe pulmonary nodule and mild patchy left upper lobe tree-in-bud/groundglass opacity, favored benign. If the patient is considered high risk, an optional follow-up noncontrast CT chest can be obtained in 12 months. The [facility] Pulmonary Nodule Advisory Board will be notified.
--faxed to PCP
[2025-01-21] VITALS (13 sets, daily range): BP systolic 114–140; BP diastolic 86–112; BMI 27.4
[2025-01-21 08:28] LABS: ACT-LR - POC 390 Seconds (116-155)
[2025-01-21 08:41] LABS: ACT-LR - POC 308 Seconds (116-155)
[2025-01-21 09:00] LABS: ACT-LR - POC 319 Seconds (116-155)
--- NOTE | 2025-01-21 09:21 | ITS.CL.ABL ---
Clinical Faculty - Ablation
Ablation
Procedure Report:
ELECTROPHYSIOLOGY ABLATION STUDY
DATE:: January 21, 2025 REFERRING: Dr. Tanesha Issa
INDICATION: Persistent supraventricular tachycardia in the form of atrial fibrillation. Refractory to amiodarone and associated with congestive heart failure and a depressed ejection fraction
HISTORY: See H and P. As above
ANTIARRHYTHMIC DRUG: Amiodarone
PRE-PROCEDURE CLARISSA: No intracardiac thrombus
PRESENTING RHYTHM: A-fib
'TIME-OUT': called and confirmed.
SEDATION/ANESTHESIA: provided via the anesthesia department using general anesthesia (LMA).
INTRAVENOUS/ARTERIAL ACCESS:
Right femoral venous - 10 Fr, 8Fr
[id number] suture to bilateral femoral venous sites
Ultrasound guidance for bilateral femoral vein access was utilized by me to obtain access with demonstration of normal anatomy
CHADS-VASC Score:
HAS-Bled Score
PROCEDURE:
1. A decapolar CS catheter was placed within the CS for mapping and pacing. This was also used as the reference catheter for the 3-D map. Prior to initiating procedure the patient's BiV ICD was interrogated with stable lead parameters and device
therapies placed to off for the duration of the procedure and at the end of the procedure initial parameters were restored with ICD therapies on VF 188 VT 167 and DDDR 70 to 130 bpm. No change in lead position was noted after procedure.
2. The intracardiac ultrasound catheter was positioned in the RA to identify the FO for targeting of transseptal puncture, assist in identification of the pulmonary vein ostia, monitoring pre and post ablation pulmonary vein flow velocities,
monitoring for 'bubble' formation during RF application as a sign of thermal injury, and to monitor for pericardial effusion during mapping and ablation procedure. Left atrial size, LV ejection fraction, and pulmonary vein flows were monitored
pre and post ablation procedure. The other valves were inspected and found to be free of significant regurgitation or stenosis. There was a small pericardial effusion preprocedure in the AV groove posteriorly which was unchanged post procedure and
was not causing hemodynamic significance.
3. Half of the calculated heparin bolus was administered prior to the first transeptal puncture. Transseptal puncture was performed to diagnose RA and LA pressure so that safety of LA mapping and ablation could be further assessed, and to access
the left atrium and pulmonary veins for mapping and ablation. This entailed advancing an 10 Ethiop[place] sheath, safe septal wire, with dilator into the superior vena cava and withdrawing both (monitoring intracardiac ultrasound, fluoroscopy and tip
pressure) with the tip oriented toward the atrial septum. The fossa ovalis was engaged (indicated by sudden displacement of the sheath tip as well as tenting of the fossa seen on intracardiac ultrasound). Left atrial access required a pass with
the [place] needle extended. Left atrial catheter position was confirmed by pressure monitoring (RA mean pressure 4 mm Hg and LA mean presure 8 mm Hg which was answered with gentle IV fluids), LA saturation (99%), as well as fluoroscopy.
The sheath was advanced over the dilator and positioned in the left atrium. This procedure was repeated for the Agilis sheath. The remainder of the calculated heparin bolus was administered and heparin was
infused to maintain ACT at 300 -350 seconds throughout the case.
4. RA pacing was performed via the proximal decapolar poles and LA pacing was performed via the distal decapolar poles.
5. The Lattice catheter was utilized for left atrial and left ventricular recording as well as atrial pacing from the left atrium and multiple sites.
6. The lattice catheter was placed in each of the LIPV, LSPV, RSPV and the RIPV.
7. Next, a 3-D map was created using Navex. A 3-D reconstructed CT image was compared to the 3-D Navex map to assist in anatomic interpretation, mapping and ablation. The CT image and the NavX image were fused.
8. [place] lesions were given around the pulmonary veins to isolate the left and right veins with initial lesions in [place] and directed lesions towards the mio of the right pulmonary veins. We then performed a box lesion set on the
posterior wall with a roof and floor line and targeting additional substrate within the box lesion set to isolate both the pulmonary veins and the left atrial posterior wall from roof to floor.
The entirety of the lesions that was given with pulse field ablation.
9. No other nonpulmonary vein triggers for atrial fibrillation were noted. The patient was converted to sinus rhythm prior to assessing entrance and exit block with 1 200 J synchronized biphasic shock.
TOTAL FLOURO TIME: 12.5 minutes
TOTAL RF DURATION: 0 minutes
REVERSAL OF HEPARIN: 35 mg of protamine, slow IV administration
COMPLICATIONS:
None
Intracardiac US shows no change in pericardial effusion post ablation.
SUMMARY:
Complex left atrial mapping and ablation.
Isolation of all 4 pulmonary veins plus the left atrial roof floor and posterior wall as above.
RECOMMENDATIONS:
1. Ambulate in 4 hours
2. Resume anticoagulation
3. Discontinue amiodarone in 1 to 3 months
4. Repeat echocardiogram in 3 months
Copy to: Dr. Tanesha Issa
[2025-01-21] MEDS: PROSCAR 5 MG PO (10:17)
[2025-01-21] MEDS: COREG 3.125 MG PO (10:17)
--- NOTE | 2025-01-21 14:47 | W.PN.UPDATE ---
Update Note
Progress Note Update
79 yo WM s/p PVI (same day). He denies cp, sob, tamika diet, voiding, amb w/o dizziness, R fem site with some oozing initially after F08 removed, but improved with manual pressure, c/d/i, soft, no HT, EKG AVdual paced. He will resume Eliquis tonight
and continue amiodarone. Activity restrictions reviewed. He will f/u [facility] in 1 mo and then continue cardiac care with Dr. Almendarez. He is for d/c home after 230p.
== END 2025-01-21 14:51 | disposition home or self-care (01) ==
LOC: CATH 05:58
PROVIDERS: ATTENDING PHYSICIAN Internal Medicine Cardiovascular Disease; FAMILY PHYSICIAN Family Medicine; OTHER PHYSICIAN Internal Medicine Cardiovascular Disease
DX: I48.19 Other persistent atrial fibrillation (principal); I11.0 Hypertensive heart disease with heart failure; I50.22 Chronic systolic (congestive) heart failure; I34.1 Nonrheumatic mitral (valve) prolapse; I25.10 Atherosclerotic heart disease of native coronary artery without angina pectoris; Z95.5 Presence of coronary angioplasty implant and graft; E78.5 Hyperlipidemia, unspecified; F41.9 Anxiety disorder, unspecified; F32.A Depression, unspecified; N40.0 Benign prostatic hyperplasia without lower urinary tract symptoms; G47.00 Insomnia, unspecified; M19.90 Unspecified osteoarthritis, unspecified site; R74.01 Elevation of levels of liver transaminase levels; K21.9 Gastro-esophageal reflux disease without esophagitis; K44.9 Diaphragmatic hernia without obstruction or gangrene; D18.09 Hemangioma of other sites; Z79.899 Other long term (current) drug therapy; Z79.82 Long term (current) use of aspirin; Z79.01 Long term (current) use of anticoagulants
CPT/HCPCS: C1894; C1766; C1730; C1892; C1759; C1733; 85347; 93005; 93656; 93657

== ENCOUNTER → 2025-05-20 14:17 | Outpatient (REF) | payer MEDICARE, BC, SELFPAY | LOC: RAD 14:17 | PROVIDERS: ATTENDING PHYSICIAN Internal Medicine Cardiovascular Disease; FAMILY PHYSICIAN Family Medicine | DX: M25.552 Pain in left hip (principal); Z91.81 History of falling | CPT/HCPCS: 73502 ==

== ENCOUNTER → 2025-06-24 10:12 | Outpatient (REF) | payer MEDICARE, BC, SELFPAY | LOC: RAD 10:12 | PROVIDERS: ATTENDING PHYSICIAN Internal Medicine Cardiovascular Disease; FAMILY PHYSICIAN Family Medicine | DX: R91.1 Solitary pulmonary nodule (principal); I71.21 Aneurysm of the ascending aorta, without rupture; N40.1 Benign prostatic hyperplasia with lower urinary tract symptoms | CPT/HCPCS: 71275; Q9967 ==

== ENCOUNTER 2025-10-07 06:36 | Day surgery (SDC) | payer MEDICARE, BC, SELFPAY ==
[2025-10-07 07:18] VITALS: BMI 27.2
== END 2025-10-07 08:30 | disposition home or self-care (01) ==
LOC: CATH 06:36
PROVIDERS: ATTENDING PHYSICIAN Internal Medicine; FAMILY PHYSICIAN Family Medicine; OTHER PHYSICIAN Internal Medicine Cardiovascular Disease
DX: I48.0 Paroxysmal atrial fibrillation (principal); I50.22 Chronic systolic (congestive) heart failure; R03.1 Nonspecific low blood-pressure reading; Z79.01 Long term (current) use of anticoagulants; R91.1 Solitary pulmonary nodule; I08.0 Rheumatic disorders of both mitral and aortic valves; Z79.82 Long term (current) use of aspirin; Z79.899 Other long term (current) drug therapy
CPT/HCPCS: 92960; 93005